=== PATIENT | male | born 1960 | race Caucasian/White ===

== ENCOUNTER 2020-02-23 12:56 | Outpatient (CLI) | payer OTHER, SELFPAY ==
--- NOTE | ~2020-02-23 | CT_ITS ---
EXAMINATION: CT sinus wo con DATE: 02/23/2020 14:05 INDICATION: Chronic sinusitis TECHNIQUE: Computed tomography (CT) of the paranasal sinuses was performed without intravenous contra st. The dose-length product was 304.88 mGy-cm. Automated exposure control and iterative reconstructio n technique were employed. COMPARISON: None FINDINGS: There is extensive mucosal thickening of all paranasal sinuses. Small mastoid effusions. Os tiomeatal units are occluded. Leftward nasal septal deviation. There is mucoperiosteal reaction in th e paranasal sinuses. IMPRESSION: 1. Chronic pansinusitis. Reviewed, dictated and finalized at location B. PREAD CUTTER HAND IMPRESSION: 1. Chronic pansinusitis.
== END 2020-02-23 12:57 | disposition home or self-care (01) ==
LOC: CHSIMG 12:57
PROVIDERS: PCP Internal Medicine; Visit Provider Internal Medicine
DX: J32.9 Chronic sinusitis, unspecified (principal)
CPT/HCPCS: 70486

== ENCOUNTER 2021-02-03 09:30 | Outpatient (CLI) | payer OTHER, SELFPAY ==
--- NOTE | ~2021-02-03 | CT_ITS ---
EXAMINATION: CT sinus wo con DATE: 02/03/2021 09:56 INDICATION: Right sinus facial pressure and bleeding. History of sinus surgery. TECHNIQUE: Computed tomography (CT) of the paranasal sinuses was performed without contrast. Iterativ e reconstruction technique was employed. Exam dose: 296.82 mGy-cm total exam DLP. COMPARISON: 02/23/2020 CT sinuses FINDINGS: There is leftward deviation of the nasal septum. There is prominence of the inferior nasal turbinates. There is severe soft tissue thickening of the mid and upper nasal cavities, engulfing the area of the middle nasal turbinates, which are largely obscured or possibly partially absent post-surgically. The region of the osteomeatal units is completely opacified bilaterally. The frontal sinuses are completely opacified. The ethmoid air cells are nearly completely opacified b ilaterally. The sphenoid sinuses are completely opacified the exception of 2 small locules of air in the left sph enoid sinus. There is severe nearly complete opacification of maxillary sinuses. The mastoid air cells are minimally developed on the right. There is limited development of the left mastoid air cells. IMPRESSION: Severe pansinusitis There is slight interval aeration of the ethmoid air cells and mild interval aeration of the superior portion of the maxillary sinuses since the complete opacification noted in the sinuses on 02/2020 Reviewed, dictated and finalized at Location A. Reviewed, dictated and finalized at location A. N AGENT IMPRESSION: Severe pansinusitis There is slight interval aeration of the ethmoid air cells and mild interval ae ration of the superior portion of the maxillary sinuses since the complete opac ification noted in the sinuses on 02/2020
== END 2021-02-03 09:31 | disposition home or self-care (01) ==
LOC: CHSIMG 09:31
PROVIDERS: PCP Internal Medicine; Visit Provider Otolaryngology
DX: J32.9 Chronic sinusitis, unspecified (principal)
CPT/HCPCS: 70486

== ENCOUNTER 2021-03-09 23:14 | Inpatient (IN) | payer OTHER, SELFPAY ==
--- NOTE | ~2021-03-09 | XR_ITS ---
EXAMINATION: XR chest 1V portable DATE: 03/09/2021 23:39 INDICATION: Shortness of breath. TECHNIQUE: A single frontal view of the chest was obtained. COMPARISON: Chest 2 views 02/26/2019 FINDINGS: A calcified left lung nodules consistent with old granulomatous disease. There is mild atel ectasis at left lung base. No pleural effusion or pneumothorax. The heart size is normal. IMPRESSION: 1. Mild atelectasis at left lung base. Reviewed, dictated and finalized at location A. SSIBILITY LIFT TECHNICIAN
--- NOTE | ~2021-03-09 | CT_ITS ---
EXAMINATION: CT sinus wo con DATE: 03/11/2021 08:02 INDICATION: Chronic sinusitis, worse for the past 2 weeks TECHNIQUE: Computed tomography (CT) of the paranasal sinuses was performed without contrast. Iterativ e reconstruction technique was employed. Exam dose: 273.54 mGy-cm total exam DLP. COMPARISON: 02/03/2021 CT sinuses FINDINGS: The nasal cavities are almost completely opacified, as are the left and right middle meatus and ostiomeatal units. The nasal turbinates are engulfed by the soft tissue swelling. There is leftward bowing of the nasal septum. There is limited development of the mastoid air cells, especially on the right There is complete opacification without any aeration at the frontal, ethmoid, maxillary and sphenoid sinuses. IMPRESSION: Complete opacification of all paranasal sinuses Nearly complete opacification of the nasal cavities, left and right middle meatus Reviewed, dictated and finalized at Location A. Reviewed, dictated and finalized at location B. ERN CHAIN MAKER SUPERVISOR IMPRESSION: Complete opacification of all paranasal sinuses Nearly complete opacification of the nasal cavities, left and right middle meat us
[2021-03-09 23:15] VITALS: BP 89/39; PULSE 182; RESP 16; TEMP 35.5; O2SAT 98
--- NOTE | 2021-03-09 23:20 | ECG_ITS ---
Measurements Intervals [place] Rate: 173 P: TN: 0 QRS: 76 QRSD: 94 T: -18 QT: 222 QTc: 377 Interpretive Statements ATRIAL FIBRILLATION WITH RAPID VENTRICULAR RESPONSE LOW QRS VOLTAGE IN PRECORDIAL LEADS CANNOT RULE OUT SEPTAL INFARCT, AGE INDETERMINATE ST-T WAVE ABNORMALITY IN ANTEROLAT/INF LEADS- CONSIDER ISCHEMIA BASELINE WANDER- II, III, AVF, V2-V6 ABNORMAL ECG Electronically Signed On 03-10-2021 6:25:56 LICENSED MARRIAGE AND FAMILY THERAPIST by Zac Hu D.O.
[2021-03-09] MEDS: SODIUM CHLORIDE 0.9% IV 1,000 ML 999 ML IV CONT (23:36)
[2021-03-09] MEDS: dilTIAZem HCl INJ 25 MG/5 ML VIAL 20 MG IV PUSH (23:37)
[2021-03-09 23:46] VITALS: BP 86/69; PULSE 141
[2021-03-09] MEDS: dilTIAZem 100 MG/100 ML 100 MG/100 ML BAG IV CONT (23:46)
--- NOTE | 2021-03-09 23:48 | ED.ARRPALP ---
HPI - Arrhythmia/Palpitations General Chief Complaint: Arrhythmia/Palpitations Stated Complaint: AFIB Time Seen by Provider: 03/09/21 23:16 Source: patient, family and RN notes reviewed Mode of arrival: ambulatory Limitations: no limitations History of Present Illness complaint: rapid heart beat, palpitations, irregular heart beat and atrial fibrillation Onset (ago): hour(s) (1) Duration: constant Severity: moderate Context: occurred during rest Arrhythmia history: atrial fibrillation and on anti-coagulants Associated symptoms: shortness of breath and diaphoresis Related Data Home Medications Medication Instructions Recorded Confirmed fluticasone propion-salmeterol 1 inh INHALATION DAILY 02/26/19 03/09/21 [Advair Diskus] Adult Aspirin 325 mg PO DAILY 03/09/21 03/09/21 montelukast 10 mg PO DAILY 03/09/21 03/09/21 Allergies Allergy/AdvReac Type Severity Reaction Status Date / Time No Known Allergies Allergy Verified 03/09/21 23:41 Review of Systems Review of Systems: All systems reviewed & are unremarkable except as noted in HPI and below PMFSH Past Medical History Medical History (Updated 03/10/21 @ 05:52 by Neda Navarro MD) Atrial fibrillation COPD (chronic obstructive pulmonary disease) History of cardioversion Surgical History Surgical History History of tonsillectomy Family History Family History Unknown Atrial fibrillation Mother Status post catheter ablation of atrial fibrillation Sibling Status post catheter ablation of atrial fibrillation Sibling Status post catheter ablation of atrial fibrillation Social History Social History Smoking status: Never smoker Second hand tobacco smoke exposure: No Alcohol intake: current Substance use: current Substance use type: does not use Gender identity (if verbalized by the patient): Male Spiritual care concerns: No Agree to blood products: Yes Exam Const: General: no acute distress and alert Nutritional Appearance: well nourished HENMT: Head: normal to inspection Ears: external ears normal and TM's normal bilaterally General nose exam: Normal external nose present and Normal nares present Face and sinus: normal facial exam Mouth: Yes moist mucous membranes Eyes: Pupils: Equal, round and reactive pupils present EOM: EOMs intact bilaterally Neck: Neck: normal visual inspection and no lymphadenopathy Chest: Chest palpation & inspection: normal inspection of the chest Resp: Effort & Inspection: normal respiratory effort Auscultation: clear to auscultation bilaterally Cardio: Rate: tachycardic Rhythm: abnormal rhythm GI: GI Palp: Yes Soft to palpation and No Tenderness to palpation present (GI) Percussion: Yes normal to percussion : General: Yes bladder normal to palpation and Yes no CVA tenderness Male General Exam: Yes normal external exam Testes: Testes normal Back/Spine/Pelvis: Back: no CVA tenderness Skin: General skin exam: normal color Rashes: no rashes Neuro: General: patient oriented x3, moves all extremities, no meningeal signs, no focal motor deficits and CN's II-XI intact bilaterally Extrem: General: normal to inspection and no pedal edema Psych: Appearance: grossly normal and well kempt Mental Status: mental status grossly normal Affect: normal affect Thought content: Yes Normal thought content present Course Course Emergency Course: Pt was pain-free in the ED with uncontrolled HR. Mildly hypotensive with moderate sinus congestion. For admission to control AFib and manx elevated WBC. Reevaluation(s) Reevaluation #1: Pt was comfortable in the ED. Date: 03/10/21 Time: 00:10 Vital Signs Vital signs: Vital Signs Temperature 35.5 C L 03/09/21 23:15 Pulse Rate 182 H 03/09/21 23:15 Respiratory Rate 16
[2021-03-09 23:56] VITALS: BP 85/66; PULSE 143; RESP 12; O2SAT 97
[2021-03-09 23:59] LABS: Hematocrit 47.5 % (40.0-54.0); Hemoglobin 16.1 g/dL (14.0-18.0); Mean Corpuscular HGB Conc 33.9 g/dL (32.0-36.0); Mean Corpuscular Hemoglobin 31.2 pg (27.0-31.0); Mean Corpuscular Volume 92.1 fL (78.0-102.0); Mean Platelet Volume 9.4 fl (8.7-11.0); Platelet Count Result 274 K/mm3 (150-420); Red Blood Count 5.16 M/mm3 (4.70-6.10); Red Cell Distribution Width 12.8 % (11.6-14.4)
--- NOTE | 2021-03-09 23:59 | PC.NURSE ---
2319 ERP called to beside. Orderd 20mg Dilt IV push. RN admin pts bp dropped to 70/58. ERP made aware. 1 L of NS ordered. RN admin 1 L NS prior to starting cardizem per ERP. RN now monitoring pts blood pressure and heart rate.
[2021-03-10] VITALS (24 sets, daily range): BP systolic 81–120; BP diastolic 55–79; PULSE 94–133; RESP 14–20; TEMP 36.3–36.6; O2SAT 94–98; BMI 31.9
[2021-03-10 00:15] LABS: Alanine Aminotransferase 32 U/L (16-63); Albumin Level 2.8 g/dL (3.4-5.0); Alkaline Phosphatase 230 U/L (46-116); Anion Gap 15 mmol/L (8-16); Aspartate Amino Transferase 25 U/L (15-37); Bilirubin,Total 0.4 mg/dL (0.00-1.00); Blood Urea Nitrogen 8 mg/dL (7-18); Calcium 8.2 mg/dL (8.5-10.1); Carbon Dioxide 23 mmol/L (21-32); Chloride 102 mmol/L (98-108); Estimated CRCL calculation 77 ml/min; Estimated Glomerular Filt Rate > 60; Glucose 139 mg/dL (70-99); Osmolality Calculated 290 mOsm/kg (285-295); Potassium 3.5 mmol/L (3.5-5.1); Sodium 140 mmol/L (136-145); Total Protein 6.7 g/dL (6.4-8.2); Troponin I 10.2 ng/L (0.00-60.4)
[2021-03-10 00:17] LABS: Ethanol < 3 mg/dL (0-6); White Blood Count 22.1 K/mm3 (4.8-10.8)
[2021-03-10] MEDS: SODIUM CHLORIDE 0.9% IV 1,000 ML 999 ML (00:44)
[2021-03-10 00:57] LABS: Band Neutrophils Percent 0 % (0-6); Eosinophils Absolute Manual 9.06 K/mm3 (0.02-0.5); Eosinophils Percent Manual 41 % (1-6); Lymphocytes Absolute Manual 2.43 K/mm3 (1.1-4.5); Lymphocytes Percent Manual 11 % (18-44); Monocytes Absolute Manual 0.66 K/mm3 (0.1-0.90); Monocytes Percent Manual 3 % (3-9); Neutrophils Percent Manual 43 % (46-73); Total Cells Counted 100
[2021-03-10 00:58] LABS: Basophils Absolute Manual 0.44 K/mm3 (0-0.1); Basophils Percent Manual 2 % (0-1); Platelet Estimate Adequate (Adequate)
[2021-03-10] MEDS: AZITHROMYCIN 250 MG TABLET 500 MG PO (01:02)
--- NOTE | 2021-03-10 01:02 | PC.NURSE ---
PT c/o nasal congestion. Pt states he has been weaning himself of Afrin. RN informed pt that there is rebound congestion that occurs from using Afrin.RN informed ERP of patients concerns of congestion.
--- NOTE | 2021-03-10 01:10 | PC.NURSE ---
Pt aware of need for urine specimen but states she is unable to go at this time.
[2021-03-10 01:19] LABS: Lactic Acid Reflex 1.7 mmol/L (0.4-2.0)
[2021-03-10] MEDS: guaiFENesin 12 HR 600 MG TABCR PO ×3 (02:03→21:32)
--- NOTE | 2021-03-10 03:37 | PC.NURSE ---
Pt provided water and crackers. Pt states he is feeling better at this time. Pt aware waiting for covid/flu then will hopefully admit. Pt adjusted in bed.
[2021-03-10 04:30] LABS: SARS-CoV-2 RNA PCR Negative (Negative)
[2021-03-10 04:37] LABS: Influenza Control Valid (Valid)
--- NOTE | 2021-03-10 04:39 | PC.NURSE ---
RN called floor and told them of admit. They will call RN back.
[2021-03-10 04:52] LABS: Amphetamine Screen Urine Negative (Negative); Barbiturate Screen Urine Negative (Negative); Benzodiazepines Screen Urine Negative (Negative); Cannabinoid Screen Urine Negative (Negative); Cocaine Screen Urine Negative (Negative); Methadone Screen Urine Negative (Negative); Opiate Screen Urine Negative (Negative); Phencyclidine Screen Urine Negative (Negative)
[2021-03-10 04:53] LABS: Add Urine Microscopic? YES; Appearance Urine Clear (Clear); Bilirubin Urine Negative (Negative); Blood Urine Negative (Negative); Color Urine Yellow (Yellow); Glucose Urine UA Negative (Negative); Ketones Urine 2+ (Negative); Leukocyte Esterase Ur Negative (Negative); Nitrate Urine Negative (Negative); Protein Urine Negative (Negative); Urobilinogen Urine 0.2 mg/dL (0.2-1.0)
[2021-03-10 05:01] LABS: Granular Casts Urine 20-29 /lpf; Mucus Urine Moderate /lpf; Squamous Epithelial Cell Urine Few /hpf (Few)
--- NOTE | 2021-03-10 06:00 | ADMGEN ---
This patient, TIGIST JOAQUIN, was admitted to 2nd Floor Room 226-1. Patient oriented to hospital policies and general routines including ID bracelet, bed and alarms, visiting hours, pain management, procedures, bathroom and other care routines, personal items, smoking policy, room service/diet, and visiting hours. Information on how to activate the Rapid Response Team has been discussed. Patient are encouraged to report perceived risks to care and to ask questions if they do not understand what they are told or what they should do. Patient admitted to 2nd floor with Cardizem drip going @ 5mg/hour to IV site in [facility]. Patient denies pain/complaints/sob @ this time. No distress noted. Call light in reach.
[2021-03-10] MEDS: SODIUM CHLORIDE 0.9% IV 500 ML IV CONT (06:55)
--- NOTE | 2021-03-10 08:00 | ECG_ITS ---
Measurements Intervals [place] Rate: 113 P: FL: 0 QRS: 60 QRSD: 98 T: 20 QT: 309 QTc: 425 Interpretive Statements ATRIAL FIBRILLATION WITH RAPID VENTRICULAR RESPONSE INCOMPLETE RIGHT BUNDLE BRANCH BLOCK BORDERLINE ST-T WAVE ABNORMALITY- ANT/INF LEADS BASELINE ARTIFACT- V2-V4 ABNORMAL ECG Electronically Signed On 03-10-2021 8:00:48 HEMSTITCHER by Zac Hu D.O.
[2021-03-10] MEDS: ASPIRIN 325 MG ENTERIC TABLET PO (08:01)
[2021-03-10] MEDS: MONTELUKAST SODIUM 10 MG TABLET PO (08:01)
[2021-03-10] MEDS: SODIUM CHLORIDE 0.9% IV 1,000 ML 250 ML IV CONT ×3 (08:30→16:31)
--- NOTE | 2021-03-10 08:42 | PC.NURSE ---
Titrated Cardizem from 5mg/hr to 7mg/hr per Dr. Higgins and protocol.
--- NOTE | 2021-03-10 09:35 | PC.NURSE ---
Titrated cardizem from 7mg/hr to 10mg/hr at 0930. BP 108/61 HR at 124 at 0930. Will monitor closely.
[2021-03-10] MEDS: SALMET XINAFT/FLUTIC PROPIN 250 MCG/50 MCG INH CAP 1 PUFF INHALATION (09:44)
[2021-03-10] MEDS: APIXABAN 2.5 MG TABLET 5 MG PO ×2 (12:28→21:31)
--- NOTE | 2021-03-10 12:28 | PM.IMHP ---
H&P: HPI History of Present Illness Date/Time: 03/10/21 12:28 this is a 60-year-old male who presented to our emergency depart with complaints of heart palpitations and dizziness. Patient has a past medical history of A. fib, COPD and history of cardioverted. Patient is [facility] in [place] , medical records requested. According to patient he has been cardioverted several times in the past he also notes that his doctor took him off of his Cardizem 240 mg daily and Eliquis because he has been in sinus rhythm for quite some time now. Patient also notes that he believes that all of this occurred because he has been fighting a sinus infection for the last 2 months. He notes that his ENT doctor put cefdinir and steroids with no relief he also notes that he has stents placed in his nares due to his sinus problem. Patient heart rate was in the 180s when he presented to the ED rate of 113, WBCs 22.1, hemoglobin 16.1 hematocrit 47.5 platelets 274, sodium 140, potassium 3.5, chloride 102, BUN 8, creatinine 1.18, glucose 139, lactic acid 1.7 liver function test within normal limits troponin 10.2 Covid influenza negative toxicology negative, chest x-ray Mild atelectasis at left lung base. The patient denies SOB, CP, palpitation, extremity numbness, lightheadedness, dizziness, constipation, diarrhea, chills, or fever. Chief Complaint: Heart palpitation, dizziness Review of Systems Review of Systems: A 14 organ system Review of Systems was performed and pertinent positives included in the HPI, otherwise remaining ROS is negative. [facility] Past Medical History Medical History (Updated 03/10/21 @ 05:52 by Neda Navarro MD) Atrial fibrillation COPD (chronic obstructive pulmonary disease) History of cardioversion Surgical History Surgical History History of tonsillectomy Family History Family History Unknown Atrial fibrillation Mother Status post catheter ablation of atrial fibrillation Sibling Status post catheter ablation of atrial fibrillation Sibling Status post catheter ablation of atrial fibrillation Social History Social History Smoking status: Never smoker Second hand tobacco smoke exposure: No Alcohol intake: never Substance use: never Substance use type: does not use Gender identity (if verbalized by the patient): Male Spiritual care concerns: No Agree to blood products: Yes Meds Home Medications and Allergies Home Medications Medication Instructions Recorded Confirmed Type fluticasone propion-salmeterol 1 inh INHALATION DAILY 02/26/19 03/09/21 History [Advair Diskus] Adult Aspirin 325 mg PO DAILY 03/09/21 03/09/21 History montelukast 10 mg PO DAILY 03/09/21 03/09/21 History Allergies Allergy/AdvReac Type Severity Reaction Status Date / Time No Known Allergies Allergy Verified 03/09/21 23:41 Vital Signs Vital Signs - 24 hr 03/09/21 23:15 03/09/21 23:46 03/09/21 23:56 Temperature 96 F L Pulse Rate 182 H 141 H 143 H Respiratory Rate 16 12 Blood Pressure 89/39 L 86/69 L 85/66 L Pulse Oximetry 98 97 03/10/21 00:18 03/10/21 00:49 03/10/21 01:50 Temperature Pulse Rate 126 H 133 H 123 H Respiratory Rate 14 20 16 Blood Pressure 81/56 L 86/65 L 98/68 L Pulse Oximetry 96 97 96 03/10/21 02:39 03/10/21 03:53 03/10/21 04:30 Temperature Pulse Rate 130 H 96 114 H Respiratory Rate 18 16 20 Blood Pressure 99/71 L 99/73 L 108/61 Pulse Oximetry 96 98 96 03/10/21 05:34 03/10/21 06:00 03/10/21 07:00 Temperature 97.3 F L 97.6 F Pulse Rate 114 H 94 97 Respiratory Rate 16 20 16 Blood Pressure 114/67 112/70 Pulse Oximetry 94 95 95 03/10/21 08:00 03/10/21 08:55 03/10/21 09:33 Temperature 97.3 F L 97.6 F Pulse Rate 120 H 114 H 119 H Respiratory Rate 18 16 Blood Pressure 101/55 L
[2021-03-10] MEDS: dilTIAZem 100 MG/100 ML 100 MG/100 ML BAG 10 MG IV CONT ×2 (12:46→22:17)
[2021-03-10] MEDS: LORATADINE 10 MG TABLET PO (15:37)
--- NOTE | 2021-03-10 20:00 | PC.NURSE ---
Updated Dr Higgins on patient's heart rate and fluid intake. New order received to discontinue IV fluids.
[2021-03-10] MEDS: AMOXICILLIN/CLAVULANATE K 875-125 MG TAB 1 TABLET PO (21:31)
[2021-03-10] MEDS: traZODone HCL 50 MG TABLET PO (22:19)
[2021-03-11] VITALS (12 sets, daily range): BP systolic 114–127; BP diastolic 62–83; PULSE 99–165; RESP 18–20; TEMP 36.2–37.1; O2SAT 93–96
[2021-03-11 05:34] LABS: Hematocrit 45.1 % (40.0-54.0); Hemoglobin 15.1 g/dL (14.0-18.0); Mean Corpuscular HGB Conc 33.5 g/dL (32.0-36.0); Mean Corpuscular Hemoglobin 31.1 pg (27.0-31.0); Mean Platelet Volume 9.5 fl (8.7-11.0); Platelet Count Result 261 K/mm3 (150-420); Red Blood Count 4.85 M/mm3 (4.70-6.10)
[2021-03-11 05:50] LABS: Alanine Aminotransferase 30 U/L (16-63); Albumin Level 2.5 g/dL (3.4-5.0); Alkaline Phosphatase 213 U/L (46-116); Anion Gap 9 mmol/L (8-16); Aspartate Amino Transferase 21 U/L (15-37); Bilirubin,Total 0.4 mg/dL (0.00-1.00); Blood Urea Nitrogen 4 mg/dL (7-18); CRP 5.1 mg/dL (0.0-0.9); Calcium 7.8 mg/dL (8.5-10.1); Carbon Dioxide 25 mmol/L (21-32); Chloride 105 mmol/L (98-108); Estimated CRCL calculation 97 ml/min; Estimated Glomerular Filt Rate > 60; Glucose 106 mg/dL (70-99); Magnesium 1.8 mg/dL (1.8-2.4); Osmolality Calculated 284 mOsm/kg (285-295); Potassium 3.9 mmol/L (3.5-5.1); Sodium 139 mmol/L (136-145); Total Protein 6.3 g/dL (6.4-8.2)
[2021-03-11 05:52] LABS: White Blood Count 25.1 K/mm3 (4.8-10.8)
[2021-03-11] MEDS: dilTIAZem 100 MG/100 ML 100 MG/100 ML BAG 10 MG IV CONT (06:50)
--- NOTE | 2021-03-11 08:38 | PC.NURSE ---
cardizem drip discontinued at this time
[2021-03-11] MEDS: AMOXICILLIN/CLAVULANATE K 875-125 MG TAB 1 TABLET PO ×2 (08:51→21:04)
[2021-03-11] MEDS: MONTELUKAST SODIUM 10 MG TABLET PO (08:51)
[2021-03-11] MEDS: APIXABAN 2.5 MG TABLET 5 MG PO ×2 (08:52→21:04)
[2021-03-11] MEDS: guaiFENesin 12 HR 600 MG TABCR PO ×2 (08:53→21:04)
[2021-03-11] MEDS: SALMET XINAFT/FLUTIC PROPIN 250 MCG/50 MCG INH CAP 1 PUFF INHALATION (08:55)
[2021-03-11] MEDS: LORATADINE 10 MG TABLET PO (08:58)
[2021-03-11] MEDS: FLUTICASONE PROPIONATE 0.05% NA SPR 16 GM BTL (*BKC) 2 SPRAY NASAL (10:00)
--- NOTE | 2021-03-11 14:09 | PM.IMPN ---
Progress Note: A&P Assessment and Plan (1) Sinusitis: Qualifiers: Chronicity: chronic Sinusitis location: pansinusitis Qualified Code(s): J32.4 - Chronic pansinusitis <TEMO Handy - Last Filed: 03/11/21 14:35> Code(s): J32.9 - Chronic sinusitis, unspecified <TEMO Handy - Last Filed: 03/11/21 14:35> Status: Acute <TEMO Handy - Last Filed: 03/11/21 14:35> Assessment and Plan: 02/03/2021 CT of the sinuses indicates Severe pansinusitis Repeat CT of the sinuses pending Patient on Rocephin and azithromycin WBCs elevated 22.1, will trend 03/11/2021 Radiology IMPRESSION: Complete opacification of all paranasal sinuses, Nearly complete opacification of the nasal cavities, left and right middle meatus. Started Flonase, Solu-Medrol 40 mg once, Pt to follow up with ENT after DC <TEMO Handy - Last Filed: 03/11/21 14:35> (2) Abnormal EKG: Code(s): R94.31 - Abnormal electrocardiogram [ECG] [EKG] <TEMO Handy - Last Filed: 03/11/21 14:35> Status: Acute <TEMO Handy - Last Filed: 03/11/21 14:35> Assessment and Plan: EKG A. fib with RVR with a heart rate of 118 Patient received Cardizem 20 mg IV push 1 time in currently on a Cardizem drip at 5 mL/h restarted Cardizem 240 mg daily Continue telemetry Requested records from [facility] in [place] Awaiting call from cycle repairer [phone] 03/11/2021 Cardizem drip DC'ed, PO Cardizem started, continue to monitor, HR increases as Pt gets up and walks around. When sitting and relaxed HR around 100-120 <TEMO Handy - Last Filed: 03/11/21 14:35> (3) Atrial fibrillation with rapid ventricular response: Code(s): I48.91 - Unspecified atrial fibrillation <TEMO Handy - Last Filed: 03/11/21 14:35> Status: Acute <TEMO Handy - Last Filed: 03/11/21 14:35> Assessment and Plan: EKG A. fib with RVR with a heart rate of 118 Patient received Cardizem 20 mg IV push 1 time in currently on a Cardizem drip at 5 mL/h restarted Cardizem 240 mg daily Continue telemetry Requested records from [facility] in [place] Awaiting call from cycle repairer [phone] Restarted Eliquis 03/11/2021 As noted above <TEMO Handy - Last Filed: 03/11/21 14:35> Subjective Date/time seen: 03/11/21 14:09 Pt states he is having difficulty breathing and explains this is because his nasal passages are very congested. Pt states that he has been using Afrin for the past 1-2 weeks and prior to that a couple months ago he was using Phenylephrine. He has also had sinus ballooning and more extensive nasal surgery by an ENT in the past. Pt states he has not been able to get sleep in the last 4 nights. Pt has tried saline nasal spray with minimal success. Will keep him overnight as his Cardizem drip was DC'ed today and will monitor his HR overnight and revisit in the AM. <TEMO Handy - Last Filed: 03/11/21 14:35> Review of Systems Review of Systems: All systems reviewed & are unremarkable except as noted in HPI and below <TEMO Handy - Last Filed: 03/11/21 14:35> Exam Const: General: cooperative, healthy appearing, well developed, alert, awake, Physically active, tired appearing and uncomfortable <TEMO Handy - Last Filed: 03/11/21 14:35> Nutritional Appearance: overweight <TEMO Handy - Last Filed: 03/11/21 14:35> Limitations: other limitations (unable to breath through nasal congestion, rebound congestion from Afrin) <TEMO Handy - Last Filed: 03/11/21 14:35> HENMT: Head: other (Maxillary sinus tenderness) <TEMO Handy - Last Filed: 03/11/21 14:35> General nose exam: Abnormal mucous membranes and turbinates present erythematous and other (inflamed) <TEMO Handy - Last Filed: 03/11/21 14
[2021-03-11] MEDS: methylPREDNISolone SOD SUCC 40 MG VIAL IV PUSH (15:39)
--- NOTE | 2021-03-11 17:51 | PC.NURSE ---
erp aware of hr 130-170's afib. claims steriods in past makes hr soar. claims his sinuses are draining and coughing up a storm. cardizem gtt restarted per erp request @ 5mg/ml vs [id number]% ra.
[2021-03-11] MEDS: dilTIAZem 100 MG/100 ML 100 MG/100 ML BAG 7.5 MG IV CONT (18:18)
--- NOTE | 2021-03-11 18:18 | PC.NURSE ---
Addendum entered by Sheree Gomes RN 03/11/21 19:10: hr remains 130-150's. cardizem gtt up to 7.5mg/hr. bp127/77. Original Note: hr remains 130-150's. cardizem gtt up to 10mg/hr. bp 127/77
[2021-03-11] MEDS: SODIUM CHLORIDE 0.9% IV 500 ML IV CONT ×2 (19:12→21:09)
--- NOTE | 2021-03-11 19:15 | PC.NURSE ---
Upon assessment of pt, this RN noted pts monitor continues to show AFib c RVR at a HR of 178. Cardizem gtt is infusing @ 7.5 mg/hr on pump. Pts VSS stable at this time and he has no c/o c/p or SOB. Pt is sitting bedside and watching TV, using urinal per self and has call escalera at side. NS IV bolus of 500 ml started per order.
--- NOTE | 2021-03-11 21:00 | PC.NURSE ---
Pt continues to have rapid rate of 150-180, pt denies any c/o, charge nurse asked to call ERP for more orders due to consistent rate above 160. Order obtained for another NS 500 ml bolus and Cardizem 20 mg IVP. Explained to pt. about order and pt verbalized understanding. After Cardizem IVP administered, pt resting more comfortably and HR noted approx 130, VSS, denies any c/o.
[2021-03-11] MEDS: dilTIAZem HCl INJ 25 MG/5 ML VIAL 20 MG IV PUSH (21:02)
[2021-03-11] MEDS: FLUTICASONE PROPIONATE 0.05% NA SPR 16 GM BTL (*BKC) 1 SPRAY NASAL (21:05)
[2021-03-12] VITALS (8 sets, daily range): BP systolic 98–119; BP diastolic 56–76; PULSE 94–126; RESP 16–20; TEMP 36.3–36.6; O2SAT 94–98
--- NOTE | 2021-03-12 02:05 | PC.NURSE ---
Pt sleeping, no distress noted, Monitor shows Afib c rate of 103 and Cardizem gtt continues to infuse at 7.5 mg/hr.
[2021-03-12] MEDS: dilTIAZem 100 MG/100 ML 100 MG/100 ML BAG IV CONT (04:08)
[2021-03-12 05:52] LABS: Hematocrit 46.2 % (40.0-54.0); Hemoglobin 15.2 g/dL (14.0-18.0); Mean Corpuscular HGB Conc 32.9 g/dL (32.0-36.0); Mean Corpuscular Volume 91.1 fL (78.0-102.0); Mean Platelet Volume 9.6 fl (8.7-11.0); Platelet Count Result 275 K/mm3 (150-420); Red Blood Count 5.07 M/mm3 (4.70-6.10); Red Cell Distribution Width 12.7 % (11.6-14.4); White Blood Count 14.7 K/mm3 (4.8-10.8)
[2021-03-12 05:58] LABS: Anion Gap 13 mmol/L (8-16); Blood Urea Nitrogen 8 mg/dL (7-18); Carbon Dioxide 21 mmol/L (21-32); Chloride 104 mmol/L (98-108); Estimated CRCL calculation 113 ml/min; Estimated Glomerular Filt Rate > 60; Glucose 164 mg/dL (70-99); Osmolality Calculated 288 mOsm/kg (285-295); Potassium 4.1 mmol/L (3.5-5.1); Sodium 138 mmol/L (136-145)
[2021-03-12] MEDS: FLUTICASONE PROPIONATE 0.05% NA SPR 16 GM BTL (*BKC) 1 SPRAY NASAL (08:32)
[2021-03-12] MEDS: dilTIAZem HCL CD 180 MG CAP.ER.24H PO (08:33)
[2021-03-12] MEDS: APIXABAN 2.5 MG TABLET 5 MG PO (08:34)
[2021-03-12] MEDS: MONTELUKAST SODIUM 10 MG TABLET PO (08:34)
[2021-03-12] MEDS: LORATADINE 10 MG TABLET PO (08:35)
[2021-03-12] MEDS: AMOXICILLIN/CLAVULANATE K 875-125 MG TAB 1 TABLET PO (08:35)
[2021-03-12] MEDS: guaiFENesin 12 HR 600 MG TABCR PO (08:35)
[2021-03-12] MEDS: SALMET XINAFT/FLUTIC PROPIN 250 MCG/50 MCG INH CAP 1 PUFF INHALATION (08:51)
[2021-03-12] MEDS: methylPREDNISolone SOD SUCC 40 MG VIAL 20 MG IV PUSH (08:56)
[2021-03-12 11:54] LABS: Thyroid Stimulating Hormone 0.28 uIU/mL (0.36-3.74); Troponin I 27.3 ng/L (0.00-60.4)
--- NOTE | 2021-03-12 16:54 | PM.DS ---
DS: Admitting Diagnosis Discharge Date 03/12/2021 <TEMO Handy - Last Filed: 03/12/21 17:03> Admitting Diagnosis New onset A fib, Sinusitis <TEMO Handy - Last Filed: 03/12/21 17:03> DS: Discharge Diagnosis Discharge Diagnosis (1) Sinusitis: Qualifiers: Chronicity: chronic Sinusitis location: pansinusitis Qualified Code(s): J32.4 - Chronic pansinusitis <TEMO Handy - Last Filed: 03/12/21 17:03> Code(s): J32.9 - Chronic sinusitis, unspecified <TEMO Handy - Last Filed: 03/12/21 17:03> Status: Acute <TEMO Handy - Last Filed: 03/12/21 17:03> Assessment and Plan: 02/03/2021 CT of the sinuses indicates Severe pansinusitis Repeat CT of the sinuses pending Patient on Rocephin and azithromycin WBCs elevated 22.1, will trend 03/11/2021 Radiology IMPRESSION: Complete opacification of all paranasal sinuses, Nearly complete opacification of the nasal cavities, left and right middle meatus. Started Flonase, Solu-Medrol 40 mg once, Pt to follow up with ENT after DC 03/12/2021 continue Augmentin on DC along with Saline nasal spray and Flonase, STOP Afrin and Phenylephrine nasal spray permanently <TEMO Handy - Last Filed: 03/12/21 17:03> (2) Abnormal EKG: Code(s): R94.31 - Abnormal electrocardiogram [ECG] [EKG] <TEMO Handy - Last Filed: 03/12/21 17:03> Status: Acute <TEMO Handy - Last Filed: 03/12/21 17:03> Assessment and Plan: EKG A. fib with RVR with a heart rate of 118 Patient received Cardizem 20 mg IV push 1 time in currently on a Cardizem drip at 5 mL/h restarted Cardizem 240 mg daily Continue telemetry Requested records from [facility] in [place] Awaiting call from boat pilot [phone] 03/11/2021 Cardizem drip DC'ed, PO Cardizem started, continue to monitor, HR increases as Pt gets up and walks around. When sitting and relaxed HR around 100-120 03/12/2021 Rate is better controlled, occasionally into the 130s mostly 100-110, will continue Cardizem 300 mg on DC with close f/u with PCP and Site Controller. <TEMO Handy - Last Filed: 03/12/21 17:03> (3) Atrial fibrillation with rapid ventricular response: Code(s): I48.91 - Unspecified atrial fibrillation <TEMO Handy - Last Filed: 03/12/21 17:03> Status: Acute <TEMO Handy - Last Filed: 03/12/21 17:03> Assessment and Plan: EKG A. fib with RVR with a heart rate of 118 Patient received Cardizem 20 mg IV push 1 time in currently on a Cardizem drip at 5 mL/h restarted Cardizem 240 mg daily Continue telemetry Requested records from [facility] Awaiting call from boat pilot [phone] Restarted Eliquis 03/11/2021 As noted above 03/12/2021 ... <TEMO Handy - Last Filed: 03/12/21 17:03> DS: Summary Hospital Course Reason for hospitalization: 60-year-old male with a history of Parres smoking, COPD, atrial fibrillation status post cardioversion 2 years ago presented with atrial fibrillation and sinusitis. The patient was noted to be hemodynamically stable without any evidence of CHF. The patient's atrial fibrillation rate is controlled with Cardizem. Patient is anticoagulated with Eliquis. Advised to follow-up with boat pilot. <Arvind Candelaria MD - Last Filed: 03/12/21 18:12> Hospital Course: Rate controlled improved for A fib, Sinusitis improved continue Augmentin, Flonase, Saline spray <TEMO Handy - Last Filed: 03/12/21 17:03> Time Spent with Patient Time attestation: Total time spent providing and/or coordinating discharge services: < 30 minutes <Lloyd Suarez, NICOLAS-Srikanth - Last Filed: 03/12/21 17:03> Exam Const: General: cooperative, healthy appearing, comfortable, no acute distress, well developed, alert, awake and Physically a
--- NOTE | 2021-03-12 18:08 | PC.NURSE ---
Patient aware of being discharged. Telemetry removed and IV to right forearm D/C'd. IV site without redness, swelling, drainage. No active bleeding observed after removal, dressing applied and instructions given to monitor site. Patient dressed. No c/o SOB, chest pain/pressure, pain. Patient able to amb to wheelchair. Patient taken to front entrance via wheelchair where his son picked him up.
--- NOTE | 2021-03-13 10:34 | PC.NURSE ---
Pt states he received and understood his discharge instructions. Pt also states everyone was wonderful .
== END 2021-03-12 17:40 | disposition home or self-care (01) | DRG 310 ==
LOC: CHSED 23:21 → CHS2ND 03-10 05:01
PROVIDERS: Nurse Practitioner; Nurse Practitioner Family; Admitting Provider Emergency Medicine; Emergency Provider Emergency Medicine; PCP Internal Medicine; Visit Provider Emergency Medicine
DX: I48.20 Chronic atrial fibrillation, unspecified (principal); J44.9 Chronic obstructive pulmonary disease, unspecified; J32.4 Chronic pansinusitis
CPT/HCPCS: 36415; 70486; 71045; 80048; 80053; 80307; 81001; 83605; 83735; 84443; 84484; 85025; 85027; 86140; 87040; 87081; 87804; 87880; 93005; 93306; 96361; 96365; 96366; 96368; 96374; 99285; A9270; C9803; J0696; J2920; J7030; J7040; U0003; U0005

== ENCOUNTER 2021-04-01 12:27 | Outpatient (CLI) | payer OTHER, SELFPAY ==
--- NOTE | ~2021-04-01 | XR_ITS ---
EXAMINATION: XR sacroiliac joints min 3V, XR lumbar spine 2-3V EXAM DATE: 04/01/2021 13:28 (accession [id number]), 04/01/2021 13:30 (accession [id number]) INDICATION: Acute Low Back Pain x3wks, NKI . TECHNIQUE: Frontal, bilateral oblique projections of the sacroiliac joints. Lumber spine frontal, l ateral, lateral L5-S1 projections for interpretation. There is no prior study for comparison. FINDINGS: Mild symmetric sacroiliac primary osteoarthritis. There is moderate L4-5 and mild to modera te L5-S1 disc disease. Moderate to severe lower lumbar facet arthropathy. The vertebral bodies are al igned in the AP dimension. There are no acute fractures identified. Paraspinal soft tissue is unremar kable. IMPRESSION: 1. Moderate to severe lower lumbar facet arthropathy, moderate L4-5 disc disease. 2. Mild sacroiliac osteoarthritis. Reviewed, dictated and finalized at location A. T TEAM MEMBER IMPRESSION: 1. Moderate to severe lower lumbar facet arthropathy, moderate L4-5 disc disea se. 2. Mild sacroiliac osteoarthritis.
[2021-04-01 12:59] LABS: Hematocrit 43.9 % (40.0-54.0); Hemoglobin 14.6 g/dL (14.0-18.0); Mean Corpuscular HGB Conc 33.3 g/dL (32.0-36.0); Mean Corpuscular Hemoglobin 30.9 pg (27.0-31.0); Mean Platelet Volume 9.2 fl (8.7-11.0); Platelet Count Result 205 K/mm3 (150-420); Red Blood Count 4.72 M/mm3 (4.70-6.10); Red Cell Distribution Width 13.6 % (11.6-14.4)
[2021-04-01 13:27] LABS: White Blood Count 25.3 K/mm3 (4.8-10.8)
[2021-04-01 13:43] LABS: Band Neutrophils Percent 1 % (0-6); Neutrophils Absolute Manual 7.59 K/mm3 (1.3-6.7); Neutrophils Percent Manual 29 % (46-73); Total Cells Counted 100
[2021-04-01 13:44] LABS: Eosinophils Absolute Manual 14.92 K/mm3 (0.02-0.5); Eosinophils Percent Manual 59 % (1-6); Lymphocytes Absolute Manual 1.51 K/mm3 (1.1-4.5); Lymphocytes Percent Manual 6 % (18-44); Monocytes Absolute Manual 1.26 K/mm3 (0.1-0.90); Monocytes Percent Manual 5 % (3-9); Platelet Estimate Adequate (Adequate)
[2021-04-01 13:53] LABS: Alanine Aminotransferase 83 U/L (16-63); Albumin Level 2.6 g/dL (3.4-5.0); Alkaline Phosphatase 276 U/L (46-116); Anion Gap 9 mmol/L (8-16); Aspartate Amino Transferase 97 U/L (15-37); Bilirubin,Total 0.6 mg/dL (0.00-1.00); Blood Urea Nitrogen 9 mg/dL (7-18); Calcium 8.4 mg/dL (8.5-10.1); Carbon Dioxide 29 mmol/L (21-32); Chloride 100 mmol/L (98-108); Estimated Glomerular Filt Rate > 60; Glucose 105 mg/dL (70-99); Osmolality Calculated 284 mOsm/kg (285-295); Potassium 4.7 mmol/L (3.5-5.1); Sodium 138 mmol/L (136-145); Total Protein 7.1 g/dL (6.4-8.2)
[2021-04-01 13:56] LABS: CRP 13.1 mg/dL (0.0-0.9)
[2021-04-01 14:05] LABS: Erythrocyte Sedimentation Rate 24 mm/hr (0-20)
[2021-04-01 15:50] LABS: INR 1.2; Prothrombin Time 12.4 Seconds (9.50-12.10)
[2021-04-02 11:22] LABS: Hemoglobin A1C 5.6 % (<5.7)
[2021-04-02 11:29] LABS: Cholesterol 151 mg/dL (0-200); HDL Direct 30 mg/dL (40-60); LDL Cholesterol Calculated 103 mg/dL (<130); Triglycerides 88 mg/dL (0-150)
[2021-04-04 06:12] LABS: Immunoglobulin E 1561 kU/L (<=114)
[2021-04-05 05:05] LABS: Hepatitis B Surface Antibody Nonreactive (Nonreactive); Hepatitis C Signal to Cutoff 0.01 ratio (<1.00); Hepatitis C Virus Antibody Nonreactive (Nonreactive)
== END 2021-04-01 12:28 | disposition home or self-care (01) ==
PROVIDERS: PCP Internal Medicine; Visit Provider Internal Medicine
DX: M54.50 Low back pain, unspecified (principal); D72.829 Elevated white blood cell count, unspecified; K74.60 Unspecified cirrhosis of liver
CPT/HCPCS: 36415; 72100; 72202; 80053; 80061; 82785; 83036; 85025; 85610; 85652; 86140; 86706; 88184; 88185; 88189

== ENCOUNTER 2021-04-05 19:50 | Emergency (ER) | payer OTHER, SELFPAY ==
--- NOTE | ~2021-04-05 | XR_ITS ---
EXAMINATION: XR chest 2V EXAM DATE: 04/05/2021 20:38 INDICATION: Bilat Hand And Feet Numbness/Afib/Hx Of Copd . TECHNIQUE: Frontal and lateral projections of the chest obtained and reviewed. Comparison is made to prior examination from 02/26/2019. FINDINGS: Some chronic left basilar airspace disease probably scarring, appears unchanged compared t o 2019 x-ray. There is left basilar granuloma. No evidence of superimposed acute airspace disease. No pneumothorax or pleural effusion. Cardiomediastinal silhouette is normal. There are no osseous abnor malities identified. IMPRESSION: Chronic left lower lobe scarring or atelectasis. Reviewed, dictated and finalized at location G. ITION TECH
--- NOTE | 2021-04-05 20:10 | ECG_ITS ---
Measurements Intervals [place] Rate: 154 P: AR: 0 QRS: 133 QRSD: 103 T: -10 QT: 304 QTc: 488 Interpretive Statements ATRIAL FIBRILLATION WITH RAPID VENTRICULAR RESPONSE VENTRICULAR COUPLET AND SHORT RUN OF VENTRICULAR TACHYCARDIA RIGHT AXIS DEVIATION CANNOT RULE OUT SEPTAL INFARCT, AGE INDETERMINATE INCOMPLETE RIGHT BUNDLE BRANCH BLOCK LOW VOLTAGE- PRECORDIAL LEADS BASELINE ARTIFACT- I, II ABNORMAL ECG Electronically Signed On 04-06-2021 7:25:00 TEST DESK SUPERVISOR by Zac Hu D.O.
[2021-04-05 20:20] VITALS: PULSE 141; RESP 16; TEMP 35.6; O2SAT 96
--- NOTE | 2021-04-05 20:23 | ED.GENADULT ---
HPI - General Adult General Chief complaint: Unspecified Stated complaint: NUMBNESS MUTIPLE SITES/ANKLE PAIN Time Seen by Provider: 04/05/21 19:53 Source: patient Mode of arrival: wheelchair Limitations: no limitations History of Present Illness HPI narrative: 60-year-old man with a history of atrial fibrillation and COPD brought to the emergency department by his for progressively worse numbness in his hands or feet for the last week, rt ankle pain, rash on his right lower leg, and weakness in the last day or 2. Patient was recently treated at [facility] for atrial fibrillation (cardioversion). His doctor has been working him up for eosinophilia, low back pain, and elevated liver enzymes. CTA at [facility] was negative per Dr. Diane, but showed some abnormalities in his liver. Denies fever, shortness of breath, vomiting, diarrhea, dysuria, chest pain. He denies sick exposures. Related Data Home Medications Medication Instructions Recorded Confirmed fluticasone propion-salmeterol 1 inh INHALATION DAILY 02/26/19 04/05/21 [Advair Diskus] montelukast 10 mg PO DAILY 03/09/21 04/05/21 diltiazem HCl [Cartia XT] 240 mg PO DAILY 04/05/21 04/05/21 Allergies Allergy/AdvReac Type Severity Reaction Status Date / Time No Known Allergies Allergy Verified 03/09/21 23:41 Review of Systems Review of Systems: All systems reviewed & are unremarkable except as noted in HPI and below Constitutional: Constitutional: Denies chills, Reports fatigue and Denies fever(s) ENT: Denies otalgia, Reports nasal congestion, Reports post nasal drip, Reports sinus pressure and Denies sore throat Cardiovascular: Cardiovascular: Denies chest pain at rest, Denies chest pain with activity, Reports rapid heart rate and Reports leg edema Respiratory: Respiratory: Denies cough, Denies hemoptysis, Denies dyspnea and Denies wheezing Gastrointestinal: Gastrointestinal: Denies abdominal pain, Denies melena, Denies hematochezia, Denies diarrhea, Denies nausea and Denies vomiting Musculoskeletal: Musculoskeletal: Reports arthralgias (Right ankle) and Denies joint swelling Integumentary/Breasts: Skin/Breast: Reports lesions (Right ankle), Denies erythema and Denies rash Neurologic: Denies Abnormal speech present, Denies confusion, Denies vertigo, Denies dizziness, Denies syncope, Reports numbness, Denies paresthesias and Reports weakness Hematologic/Lymphatic: Hematologic/Lymphatic: Reports easy bruising Allergic/Immunologic: Allergic/Immunologic: Denies urticaria, Denies lip swelling and Denies throat swelling [facility] Past Medical History Medical History (Updated 04/06/21 @ 01:43 by Dom Higgins MD) Atrial fibrillation COPD (chronic obstructive pulmonary disease) History of cardioversion Surgical History Surgical History History of tonsillectomy Family History Family History Unknown Atrial fibrillation Mother Status post catheter ablation of atrial fibrillation Sibling Status post catheter ablation of atrial fibrillation Sibling Status post catheter ablation of atrial fibrillation Social History Social History Smoking status: Never smoker Second hand tobacco smoke exposure: No Alcohol intake: never Substance use: never Substance use type: does not use Gender identity (if verbalized by the patient): Male Spiritual care concerns: No Agree to blood products: Yes Exam Const: General: cooperative, comfortable, no acute distress, alert, awake and Physically active Nutritional Appearance: average body habitus Orientation/consciousness: patient oriented x3 HENMT: Head: normal to inspection Mouth: Yes oropharynx normal and Yes moist mucous membranes Throat: posterior oropharynx normal Eyes: Pupils: Equal, round and reactive pupils present EOM: EOMs
[2021-04-05 20:32] VITALS: PULSE 154
--- NOTE | 2021-04-05 20:32 | PC.NURSE ---
Pt to X-Ray Via W/C at this time.
--- NOTE | 2021-04-05 21:07 | PC.NURSE ---
Pt , Dr Diane here at this time to see Pt and consult with SHAD Bradshaw.
[2021-04-05 21:11] VITALS: PULSE 154; RESP 16; O2SAT 96
[2021-04-05 21:13] LABS: Hematocrit 41.8 % (40.0-54.0); Hemoglobin 13.7 g/dL (14.0-18.0); Mean Corpuscular HGB Conc 32.8 g/dL (32.0-36.0); Mean Corpuscular Hemoglobin 30.9 pg (27.0-31.0); Mean Corpuscular Volume 94.4 fL (78.0-102.0); Platelet Count Result 220 K/mm3 (150-420); Red Blood Count 4.43 M/mm3 (4.70-6.10); Red Cell Distribution Width 13.9 % (11.6-14.4)
[2021-04-05] MEDS: SODIUM CHLORIDE 0.9% IV 500 ML 999 ML IV CONT (21:18)
[2021-04-05 21:29] LABS: Lactic Acid Reflex 2.1 mmol/L (0.4-2.0)
[2021-04-05 21:32] LABS: Alanine Aminotransferase 140 U/L (16-63); Albumin Level 2.2 g/dL (3.4-5.0); Alkaline Phosphatase 243 U/L (46-116); Anion Gap 11 mmol/L (8-16); Aspartate Amino Transferase 167 U/L (15-37); Bilirubin,Total 0.4 mg/dL (0.00-1.00); Blood Urea Nitrogen 11 mg/dL (7-18); Calcium 8.4 mg/dL (8.5-10.1); Carbon Dioxide 24 mmol/L (21-32); Chloride 98 mmol/L (98-108); Estimated CRCL calculation 95 ml/min; Estimated Glomerular Filt Rate > 60; Glucose 110 mg/dL (70-99); NT Pro B Type Natriuretic Pept 3059 pg/mL (0-125); Osmolality Calculated 276 mOsm/kg (285-295); Potassium 4.2 mmol/L (3.5-5.1); Sodium 133 mmol/L (136-145); Total Protein 6.8 g/dL (6.4-8.2)
[2021-04-05 21:36] LABS: Immature Reticulocyte Fraction 22.6 % (2.0-16.52); Reticulocyte Hemoglobin Conten 34.7 pg (28.0-35.0); Reticulocyte Percent 2.71 % (0.50-1.50); Reticulocytes Absolute 0.12 M/mm3 (0.02-0.1)
[2021-04-05 21:38] LABS: Lactate Dehydrogenase 410 U/L (85-227); Thyroid Stimulating Hormone Reflex 1.27 u/IU/mL (0.36-3.74)
[2021-04-05 21:39] LABS: CRP 5.7 mg/dL (0.0-0.9)
[2021-04-05 21:42] LABS: White Blood Count 32.1 K/mm3 (4.8-10.8)
--- NOTE | 2021-04-05 21:44 | PC.NURSE ---
Critical Labs called over at this time Trip 386.8 and Wht Count 32.1. Ronaldo KULKARNI addvised.
--- NOTE | 2021-04-05 21:52 | PC.NURSE ---
Call placed to [facility] for pts patch worker for transfer. Transfer to ICU needed, will await call wilbur from [facility] for consult.
[2021-04-05 21:57] LABS: SARS-CoV-2 Ag Negative (Negative)
[2021-04-05 22:31] LABS: Erythrocyte Sedimentation Rate 72 mm/hr (0-20)
--- NOTE | 2021-04-05 22:32 | PC.NURSE ---
[facility] called back a Dr. Augustin/cna instructor consulted also ICU/Daniel and cna instructor. Currently looking for bed for pt after speaking with Dr Higgins.
[2021-04-05 22:51] VITALS: PULSE 148
[2021-04-05] MEDS: DIGOXIN INJ 250 MCG/ML 2 ML AMP (*BKC) 500 MCG IV PUSH (22:51)
[2021-04-05] MEDS: ASPIRIN 81 MG CHEWABLE TABLET 324 MG PO (22:57)
[2021-04-05] MEDS: ASPIRIN 81 MG CHEWABLE TABLET 243 MG (23:06)
--- NOTE | 2021-04-05 23:08 | PC.NURSE ---
Dr Greenberg accepted pt. Awaiting room assignment.
[2021-04-05 23:21] LABS: Band Neutrophils Percent 0 % (0-6); Basophils Absolute Manual 0.32 K/mm3 (0-0.1); Basophils Percent Manual 1 % (0-1); Eosinophils Absolute Manual 22.47 K/mm3 (0.02-0.5); Eosinophils Percent Manual 70 % (1-6); Lymphocytes Percent Manual 5 % (18-44); Monocytes Percent Manual 5 % (3-9); Neutrophils Absolute Manual 6.09 K/mm3 (1.3-6.7); Neutrophils Percent Manual 19 % (46-73); Platelet Estimate Adequate (Adequate); Total Cells Counted 100
[2021-04-06 00:05] LABS: Reflex Lactic Acid Yes or No Add Lactic
[2021-04-06 00:23] LABS: Troponin I 3772.8 ng/L (0.00-60.4)
--- NOTE | 2021-04-06 00:23 | PC.NURSE ---
Lab called over critical Troponin: 3772.8. SHAD Higgins advised.
--- NOTE | 2021-04-06 00:50 | PC.NURSE ---
Pt report caled to Gely GUILLERMO. [facility] called for Pt trans.
[2021-04-06 00:55] VITALS: BP 89/64; PULSE 140; RESP 24; TEMP 35.6; O2SAT 96
[2021-04-06 01:21] LABS: Add Urine Microscopic? YES; Appearance Urine Clear (Clear); Bilirubin Urine Negative (Negative); Blood Urine Negative (Negative); Color Urine Yellow (Yellow); Glucose Urine UA Negative (Negative); Ketones Urine 1+ (Negative); Leukocyte Esterase Ur Negative LEU/UL (Negative); Nitrate Urine Negative (Negative); Protein Urine Trace (Negative); Specific Grav Ur >= 1.030 (1.010-1.020); Urobilinogen Urine 0.2 mg/dL (0.2-1.0); pH Urine 5.5 (5.0-8.0)
[2021-04-06 01:26] LABS: Mucus Urine Moderate /lpf
== END 2021-04-06 01:22 | disposition short-term general hospital (02) ==
PROVIDERS: Emergency Provider Emergency Medicine; PCP Internal Medicine
DX: I48.20 Chronic atrial fibrillation, unspecified (principal); R79.89 Other specified abnormal findings of blood chemistry; G62.9 Polyneuropathy, unspecified; D72.10 Eosinophilia, unspecified; I77.6 Arteritis, unspecified; Z20.822 Contact with and (suspected) exposure to COVID-19
CPT/HCPCS: 36415; 71046; 80053; 81001; 83605; 83615; 83880; 84443; 84484; 85025; 85046; 85652; 86140; 86880; 87040; 87426; 93005; 96361; 96374; 99285; A9270; C9803; J1160; J7040

== ENCOUNTER 2021-11-18 12:41 | Outpatient (CLI) | payer OTHER, SELFPAY ==
[2021-11-18 13:03] LABS: Basophils Percent Auto 1.1 % (0.0-1.0); Eosinophils Absolute Auto 0.44 K/mm3 (0.02-0.50); Eosinophils Percent Auto 4.9 % (1.0-6.0); Hematocrit 46.7 % (40.0-54.0); Hemoglobin 15.6 g/dL (14.0-18.0); Immature Granulocyte Absolute 0.02 K/mm3 (0.00-0.00); Immature Granulocyte Percent A 0.2 % (0.0-0.0); Lymphocytes Absolute Auto 1.37 K/mm3 (1.10-4.50); Lymphocytes Percent Auto 15.4 % (18.0-42.0); Mean Corpuscular HGB Conc 33.4 g/dL (32.0-36.0); Mean Corpuscular Hemoglobin 31.5 pg (27.0-31.0); Mean Corpuscular Volume 94.2 fL (78.0-102.0); Monocytes Absolute Auto 0.48 K/mm3 (0.10-0.90); Monocytes Percent Auto 5.4 % (2.0-11.0); Neutrophils Absolute Auto 6.5 K/mm3 (1.7-7.2); Platelet Count Result 285 K/mm3 (150-420); Red Blood Count 4.96 M/mm3 (4.70-6.10); Red Cell Distribution Width 13.2 % (11.6-14.4); White Blood Count 8.9 K/mm3 (4.8-10.8)
[2021-11-18 13:24] LABS: Alanine Aminotransferase 19 U/L (16-63); Albumin Level 3.7 g/dL (3.4-5.0); Alkaline Phosphatase 75 U/L (46-116); Anion Gap 10 mmol/L (8-16); Aspartate Amino Transferase 12 U/L (15-37); Bilirubin,Total 0.4 mg/dL (0.00-1.00); Blood Urea Nitrogen 21 mg/dL (7-18); CRP < 0.2 mg/dL (0.0-0.9); Calcium 8.8 mg/dL (8.5-10.1); Carbon Dioxide 23 mmol/L (21-32); Chloride 104 mmol/L (98-108); Estimated Glomerular Filt Rate 55; Glucose 110 mg/dL (70-99); Osmolality Calculated 288 mOsm/kg (285-295); Potassium 3.9 mmol/L (3.5-5.1); Sodium 137 mmol/L (136-145); Total Protein 7.3 g/dL (6.4-8.2)
[2021-11-18 13:35] LABS: Rheumatoid Factor Screen Negative (Negative)
[2021-11-18 14:09] LABS: Erythrocyte Sedimentation Rate 3 mm/hr (0-20)
[2021-11-22 14:32] LABS: ANCA Screen Negative (Negative)
== END 2021-11-18 12:42 | disposition home or self-care (01) ==
LOC: CHSLAB 12:46
PROVIDERS: PCP Internal Medicine
DX: I77.6 Arteritis, unspecified (principal)
CPT/HCPCS: 36415; 80053; 85025; 85652; 86036; 86140; 86430

== ENCOUNTER 2021-11-28 13:29 | Outpatient (CLI) | payer OTHER, SELFPAY ==
[2021-11-28 13:44] LABS: Add Urine Microscopic? NO; Appearance Urine Clear (Clear); Bilirubin Urine Negative (Negative); Blood Urine Negative (Negative); Color Urine Light Yellow (Yellow); Glucose Urine UA Negative (Negative); Ketones Urine Negative (Negative); Leukocyte Esterase Ur Negative (Negative); Nitrate Urine Negative (Negative); Protein Urine Negative (Negative); Specific Grav Ur 1.015 (1.010-1.020); Urobilinogen Urine 0.2 mg/dL (0.2-1.0)
[2021-11-28 13:55] LABS: Creatinine Urine 82.07 mg/dL (40-278); Total Protein Urine Random 7.9 mg/dL (0.0-11.9)
== END 2021-11-28 13:30 | disposition home or self-care (01) ==
LOC: CHSLAB 13:34
PROVIDERS: PCP Internal Medicine
DX: I77.6 Arteritis, unspecified (principal); R79.89 Other specified abnormal findings of blood chemistry
CPT/HCPCS: 81003; 82570; 84156

== ENCOUNTER 2022-02-17 10:08 | Outpatient (CLI) | payer OTHER, SELFPAY ==
--- NOTE | 2022-02-17 11:30 | NEURO_ITS ---
Impression: # Complains of numbness of hands. History of EGPN(Churg-Cipriano Syndrome). # Bilateral Carpal Tunnel Syndrome, left more than right, sensory more than motor. # No ulnar neuropathy. # Needle/EMG exam mildly neurogenic. Motor Nerve Conduction Upper Extremities Median Nerve Conduction Velocity (m/sec) Terminal Latency (msec) Response Voltage(mV) Elbow-Wrist Wrist Elbow Wrist Right 50 4.0 1 1 Left 51 5.1 2 1 Ulnar Nerve Conduction Velocity (m/sec) Terminal Latency (msec) Response Voltage(mV) Above Elbow Below Elbow Wrist Above Elbow Below Elbow Wrist Right 54 2.9 3 4 Left 52 3.1 5 6 F-Wave Latency Median (ms) Ulnar (ms) Right 30.6 31.6 Left 30.6 30.5 Sensory Nerve Conduction Upper Extremities Median Nerve Stimulation Terminal Latency (msec) Wrist/Digit Response Voltage (uV) Wrist Right 3.6/3.6 9/4 Left 6.8/NR 29/NR Ulnar Nerve Stimulation Terminal Latency (msec) Wrist/Digit Response Voltage (uV) Wrist Right 2.7 14 Left 3.3 35 Radial Nerve Terminal Latency (msec) Response Voltage(mV) Right 2.8 8 Left 2.7 18 Left Right Muscles Examined Fibrillation Fasciculation Scarcity Voltage Duration Left Right Left Right Left Right Left Right Left Right Deltoid Biceps X X Brachioradialis Triceps X X Pronator Teres X X Ext Indicis X X Ext Digitorum X X Abd Poll Brev ++ Incr >12ms X X 1st Dorsal Interosseus Paraspinals MTDD
== END 2022-02-17 10:09 | disposition home or self-care (01) ==
LOC: ANHNEURO 10:11
PROVIDERS: PCP Internal Medicine; Visit Provider Internal Medicine
DX: G56.03 Carpal tunnel syndrome, bilateral upper limbs (principal)
CPT/HCPCS: 95886; 95911

== ENCOUNTER 2022-05-15 09:55 | Outpatient (RCR) | payer OTHER, SELFPAY ==
--- NOTE | 2022-05-15 15:32 | OTOPEVAL1 ---
Assessment and note entered by Moriah Fry, OT Evaluation Information Assessment Status Evaluation Diagnosis Numbness in hands Onset 02/2021 Subjective Information The patient reports no pain during any activities and stated that his doctor injected his wrists to decrease inflammation. The patient reports he likes to play the guitar and has been practicing lately where he thinks that his ROM has improved after playing guitar. The patient also reports a cold sensation to L hand digits 1-3 after prolonged use of L hand. Reported Pain Level Pain Score 0: Self Report Assessment OT Clinical Summary The patient is a 61 year old male who was referred to outpatient OT due to decreased sensation of B UE, limited pinch strength and ROM affecting the patient's ability to perform daily tasks. The patient's PMH includes but is not limited to EGPA, asthma and a-fib. The patient previously demonstrated no difficulties with digit ROM, pinch strength or sensation deficits and was independent with all ADLs and leisure tasks. The patient now demonstrates maximally impaired sensation of L hand (digits 1-3), decreased pinch strength and limited AROM of digits 2-3 of L hand which affect his ability to perform daily tasks and play the guitar. The patient scored a 15.9% on QuickDASH questionnaire at the time of evaluation reporting moderate difficulty with opening a jar, cutting with a knife, and had a moderately difficult time performing leisure tasks. The patient requires skilled OT at this time to address current deficits. Plan of Care Interventions Therapeutic Exercise,Manual Therapy,Neuro Re- education,Therapeutic Activities,Hot Pack/Cold Pack,Electrical Stimulation,Sensory Integrative Techn,Self-Care/Home Management,Ultrasound OT Services Indicated Yes Treatment Frequency and 2x/week for 4 weeks. Duration These treatments will address the objective and functional deficits as defined above. The patient will be advanced safely and appropriately in order for the patient to progress towards his/her prior level of function. Additional exercises will be introduced and as well as a comprehensive home exercise program upon discharge, if needed, ?to ensure carryover of functional gains achieved in the clinic. This treatment plan has been reviewed and agreement upon by the patient.
== END 2022-05-29 20:00 | disposition home or self-care (01) ==
LOC: CHSOT 09:55
PROVIDERS: Visit Provider Orthopaedic Surgery Hand Surgery
DX: G56.03 Carpal tunnel syndrome, bilateral upper limbs (principal)
CPT/HCPCS: 97110; 97140; 97165; 97530

== ENCOUNTER 2022-07-16 08:32 | Outpatient (CLI) | payer OTHER, SELFPAY ==
[2022-07-16 08:49] LABS: Appearance Urine Clear (Clear); Bilirubin Urine Negative (Negative); Blood Urine Negative (Negative); Color Urine Yellow (Yellow); Glucose Urine UA Negative (Negative); Hematocrit 47.1 % (40.0-54.0); Hemoglobin 15.6 g/dL (14.0-18.0); Ketones Urine Negative (Negative); Leukocyte Esterase Ur Negative LEU/UL (Negative); Mean Corpuscular HGB Conc 33.1 g/dL (32.0-36.0); Mean Corpuscular Hemoglobin 31.8 pg (27.0-31.0); Mean Corpuscular Volume 96.1 fL (78.0-102.0); Mean Platelet Volume 9.1 fl (8.7-11.0); Nitrate Urine Negative (Negative); Platelet Count Result 321 K/mm3 (150-420); Protein Urine Negative (Negative); Red Cell Distribution Width 12.7 % (11.6-14.4); Specific Grav Ur 1.025 (1.010-1.020); Urobilinogen Urine 0.2 mg/dL (0.2-1.0); White Blood Count 7.8 K/mm3 (4.8-10.8)
[2022-07-16 08:51] LABS: Add Urine Microscopic? NO
[2022-07-16 08:59] LABS: Hemoglobin A1C 5.4 % (<5.7)
[2022-07-16 09:00] LABS: Band Neutrophils Percent 0 % (0-6); Basophils Absolute Manual 0.23 K/mm3 (0-0.1); Basophils Percent Manual 3 % (0-1); Eosinophils Absolute Manual 0.85 K/mm3 (0.02-0.5); Eosinophils Percent Manual 11 % (1-6); Lymphocytes Absolute Manual 2.26 K/mm3 (1.1-4.5); Lymphocytes Percent Manual 29 % (18-44); Monocytes Absolute Manual 0.62 K/mm3 (0.1-0.90); Monocytes Percent Manual 8 % (3-9); Neutrophils Absolute Manual 3.82 K/mm3 (1.3-6.7); Neutrophils Percent Manual 49 % (46-73); Platelet Estimate Adequate (Adequate); Total Cells Counted 100
[2022-07-16 09:32] LABS: Alanine Aminotransferase 19 U/L (16-63); Albumin Level 3.6 g/dL (3.4-5.0); Alkaline Phosphatase 94 U/L (46-116); Anion Gap 6 mmol/L (8-16); Aspartate Amino Transferase 14 U/L (15-37); Bilirubin,Total 0.5 mg/dL (0.00-1.00); Blood Urea Nitrogen 19 mg/dL (7-18); Calcium 8.9 mg/dL (8.5-10.1); Carbon Dioxide 29 mmol/L (21-32); Chloride 105 mmol/L (98-108); Cholesterol 194 mg/dL (0-200); Estimated Glomerular Filt Rate > 60; Glucose 104 mg/dL (70-99); HDL Direct 45 mg/dL (40-60); LDL Cholesterol Calculated 133 mg/dL (<130); Osmolality Calculated 292 mOsm/kg (285-295); Potassium 4.5 mmol/L (3.5-5.1); Prostate Specific Antigen 0.8 ng/mL (< OR = 4.0); Sodium 140 mmol/L (136-145); Triglycerides 81 mg/dL (0-150)
== END 2022-07-16 08:33 | disposition home or self-care (01) ==
LOC: CHSLAB 08:34
PROVIDERS: PCP Internal Medicine; Visit Provider Internal Medicine
DX: Z00.00 Encounter for general adult medical examination without abnormal findings (principal); Z12.5 Encounter for screening for malignant neoplasm of prostate; R73.01 Impaired fasting glucose
CPT/HCPCS: 36415; 80053; 80061; 81003; 83036; 84153; 85025; G0103

== ENCOUNTER 2022-07-21 12:43 | Outpatient (CLI) | payer OTHER, SELFPAY ==
--- NOTE | 2022-07-21 13:36 | ECG_ITS ---
Rate 71 IA 194 QRSd 91 QT 366 QTc 400 --[place]-- P 64 QRS 68 T 70 SINUS RHYTHM INCOMPLETE RIGHT BUNDLE BRANCH BLOCK ST-T WAVE ABNORMALITY IN ANTERIOR LEADS- CONSIDER ISCHEMIA ABNORMAL ECG COMPARED TO ECG 04/05/2021 20:20:37 SINUS RHYTHM NOW PRESENT Electronically Signed On 07-21-2022 13:23:30 CDT by Zac GASPAR
== END 2022-07-21 12:44 | disposition home or self-care (01) ==
LOC: CHSCARD 12:49
PROVIDERS: PCP Internal Medicine; Visit Provider Orthopaedic Surgery Hand Surgery
DX: Z01.818 Encounter for other preprocedural examination (principal); R94.31 Abnormal electrocardiogram [ECG] [EKG]; I45.19 Other right bundle-branch block
CPT/HCPCS: 93005

== ENCOUNTER 2022-08-10 13:56 | Outpatient (CLI) | payer OTHER, SELFPAY ==
[2022-08-10 14:20] LABS: Hematocrit 47.5 % (40.0-54.0); Hemoglobin 15.9 g/dL (14.0-18.0); Mean Corpuscular HGB Conc 33.5 g/dL (32.0-36.0); Mean Corpuscular Hemoglobin 31.5 pg (27.0-31.0); Mean Corpuscular Volume 94.1 fL (78.0-102.0); Mean Platelet Volume 9.3 fl (8.7-11.0); Platelet Count Result 298 K/mm3 (150-420); Red Blood Count 5.05 M/mm3 (4.70-6.10); Red Cell Distribution Width 12.3 % (11.6-14.4); White Blood Count 7.5 K/mm3 (4.8-10.8)
[2022-08-10 14:52] LABS: Band Neutrophils Percent 0 % (0-6); Basophils Absolute Manual 0.15 K/mm3 (0-0.1); Basophils Percent Manual 2 % (0-1); Eosinophils Percent Manual 8 % (1-6); Lymphocytes Absolute Manual 1.87 K/mm3 (1.1-4.5); Lymphocytes Percent Manual 25 % (18-44); Monocytes Percent Manual 8 % (3-9); Neutrophils Absolute Manual 4.27 K/mm3 (1.3-6.7); Neutrophils Percent Manual 57 % (46-73); Platelet Estimate Adequate (Adequate); Total Cells Counted 100
[2022-08-10 14:54] LABS: CRP < 0.5 mg/dL (0.0-0.9)
[2022-08-10 15:19] LABS: Erythrocyte Sedimentation Rate 7 mm/hr (0-20)
[2022-08-16 21:57] LABS: ANCA Screen Negative (Negative)
== END 2022-08-10 13:57 | disposition home or self-care (01) ==
PROVIDERS: PCP Internal Medicine; Visit Provider Internal Medicine
DX: I77.82 Antineutrophilic cytoplasmic antibody [ANCA] vasculitis (principal)
CPT/HCPCS: 36415; 85025; 85652; 86036; 86140

== ENCOUNTER 2022-08-12 08:34 | Outpatient (RCR) | payer OTHER, SELFPAY ==
--- NOTE | 2022-08-12 10:38 | PTOPEVAL1 ---
Assessment and note entered by [facility] Evaluation Information Assessment Status Evaluation Diagnosis right l.e. weakness Onset 08/10/24 Subjective Information Pt. reports that he developed an autoimmune disease that has left him with some weakness. He notices difficulty walking due to weakness in the right foot and mild weakness on the left. He states that he has difficulty with pushing off his toes. He reports that he will be undergoing nerve conduction study in the near future. He states that he has not fallen due to weakness, but does stumble occasionally. He reports that he continues to drive despite his weakness. He reports that his goal for therpay is to improve his strength. Reported Pain Level Pain Score 0: Self Report Assessment PT Clinical Summary Pt. is a 61 year old male who enters the clinic due to right l.e. weakness. He presents with l.e. weakness, abdominal weakness, impaired gait. Continued skilled PT is indicated in order to improve these areas to allow the pt. to be able to safely complete standing activities with improved safety and efficiency. Plan of Care Interventions Electrical Stimulation,Gait Training,Manual Therapy,Neuro Re-education,Patient/Caregiver Educati,Therapeutic Activities,Therapeutic Exercise,Self-Care/Home Management PT Services Indicated Yes Treatment Frequency and 2x/week x 12 visits Duration These treatments will address the objective and functional deficits as defined above. The patient will be advanced safely and appropriately in order for the patient to progress towards his/her prior level of function. Additional exercises will be introduced and as well as a comprehensive home exercise program upon discharge, if needed, ?to ensure carryover of functional gains achieved in the clinic. This treatment plan has been reviewed and agreement upon by the patient.
--- NOTE | 2022-08-12 10:39 | OPREHPOC ---
Outpatient Therapy Plan of Care This is a Multidisciplinary Plan of Care that may contain components documented by all disciplines (PT, OT, and ST.) PT Problem 1 PT Problem #1 Knowledge Deficit PT Goal 1 Goal Pt. will demonstrate independence with a HEP addressing strength and mobility. Target Visit 3 PT Problem 2 PT Problem #2 Impaired Strength PT Goal 1 Goal Pt. will complete 5 standing heel raises on the right demonstrating improved strength Target Visit 12 PT Goal 2 Goal Pt. will be able to ambulate with equal right and left stance time and noted appropriate toe off on the right Target Visit 12 PT Problem 3 PT Problem #3 Impaired Balance PT Goal 1 Goal Pt. will increase his tinetti score to 28/28 indicating improved safety and balance.
== END 2022-09-08 20:00 | disposition home or self-care (01) ==
LOC: CHSPT 08:34
PROVIDERS: PCP Internal Medicine; Visit Provider Internal Medicine
DX: M62.81 Muscle weakness (generalized) (principal)
CPT/HCPCS: 97110; 97112; 97161

== ENCOUNTER 2022-09-29 12:58 | Outpatient (CLI) | payer OTHER, SELFPAY ==
--- NOTE | 2022-09-29 13:30 | NEURO_ITS ---
Impression: # Complains of numbness and weekness of lower extremities, right more than left. 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 # Needle/EMG exam reveals neurogenic changes in right EDB and Tibialis anterior muscles. # Clinical correlation recommended. Nerve Conduction Studies Anti Sensory Summary Table Stim Site NR Peak (ms) P-T Amp (?V) Site1 Site2 Delta-P (ms) Dist (cm) [place] (m/s) Left Sup Fibular Anti Sensory (Ant Lat Mall) 14 cm 4.1 3.6 14 cm Ant Lat Mall 4.1 16.0 39 Right Sup Fibular Anti Sensory (Ant Lat Mall) NO RESPONSE 14 cm NR 14 cm Ant Lat Mall 16.0 Left Sural Anti Sensory (Lat Mall) Calf 4.7 6.9 Calf Lat Mall 4.7 16.0 34 Right Sural Anti Sensory (Lat Mall) NO RESPONSE Calf NR Calf Lat Mall 16.0 Motor Summary Table Stim Site NR Onset (ms) O-P Amp (mV) Site1 Site2 Delta-0 (ms) Dist (cm) [place] (m/s) Left Peroneal Motor (Vastus Med) Ankle 4.4 0.9 Popit Ankle 9.7 43.0 44 Popit 14.1 0.7 Right Peroneal Motor (Vastus Med) MINIMAL RESPONSE Ankle NR Popit Ankle 0.0 Popit NR Left Tibial Motor (Abd Tavera Brev) Ankle 5.3 2.5 Knee Ankle 9.9 43.0 43 Knee 15.2 2.1 Right Tibial Motor (Abd Tavera Brev) NO RESPONSE Ankle NR Knee NR F Wave Studies NR F-Lat (ms) L-R F-Lat (ms) Left Peroneal (Mrkrs) (EDB) 56.84 Right Peroneal (Mrkrs) (EDB) NO RESPONSE NR Left Tibial (Mrkrs) (Abd Hallucis) 59.17 Right Tibial (Mrkrs) (Abd Hallucis) NO RESPONSE NR EMG Side Muscle Nerve Root Ins Act Fibs Amp Dur Recrt Comment Right AntTibialis Dp Br Fibular L4-5 Nml Nml Decr >12ms Reduced Right Ext Dig Brev Dp Br Fibular L5, S1 Nml Nml Nml >12ms Reduced Right Fibularis Long Sup Br Fibular L5-S1 Nml Nml Nml Nml Nml Right Flex Dig Long Tibial L5-S2 Nml Nml Nml Nml Nml Right Gastroc Tibial S1-2 Nml Nml Decr Nml Nml Left AntTibialis Dp Br Fibular L4-5 Nml Nml Nml Nml Nml Left Gastroc Tibial S1-2 Nml Nml Nml Nml Nml Left Fibularis Long Sup Br Fibular L5-S1 Nml Nml Nml Nml Nml Left Flex Dig Long Tibial L5-S2 Nml Nml Nml Nml Nml Left Ext Dig Brev Dp Br Fibular L5, S1 Nml Nml Nml Nml Nml Right QuadratusFem QuadFemoris L4-5, S1 Nml Nml Nml Nml Nml Left QuadratusFem QuadFemoris L4-5, S1 Nml Nml Nml Nml Nml MTDD
== END 2022-09-29 12:59 | disposition home or self-care (01) ==
LOC: ANHNEURO 12:59
PROVIDERS: PCP Internal Medicine; Visit Provider Internal Medicine
DX: I73.9 Peripheral vascular disease, unspecified (principal); R94.131 Abnormal electromyogram [EMG]
CPT/HCPCS: 95886; 95910

== ENCOUNTER 2022-10-23 10:14 | Outpatient (CLI) | payer OTHER, SELFPAY ==
--- NOTE | 2022-10-23 10:23 | ECG_ITS ---
Measurements Intervals [place] Rate: 143 P: NC: 0 QRS: 81 QRSD: 94 T: 64 QT: 287 QTc: 443 Interpretive Statements ATRIAL FIBRILLATION WITH RAPID VENTRICULAR RESPONSE INCOMPLETE RIGHT BUNDLE BRANCH BLOCK [90+ ms QRS DURATION, TERMINAL R IN V1/V2, 40+ ms S IN I/aVL/V4/V5/V6] NONSPECIFIC T-WAVE ABNORMALITY ABNORMAL ECG COMPARED TO ECG 07/21/2022 13:01:03 ATRIAL FIBRILLATION REPLACES SINUS RHYTHM Electronically Signed On 10-23-2022 12:38:34 CDT by Gulshan Claudio M.D.
== END 2022-10-23 10:15 | disposition home or self-care (01) ==
LOC: CHSCARD 10:19
PROVIDERS: PCP Internal Medicine
DX: I48.91 Unspecified atrial fibrillation (principal); R94.31 Abnormal electrocardiogram [ECG] [EKG]
CPT/HCPCS: 93005

== ENCOUNTER 2022-10-26 11:46 | Outpatient (CLI) | payer OTHER, SELFPAY ==
--- NOTE | ~2022-10-26 | CT_ITS ---
EXAMINATION: CT brain wo/w con DATE: 10/26/2022 13:01 INDICATION: Headache TECHNIQUE: Computed tomography (CT) of the head was performed without and with 100 mL Omnipaque-350 i ntravenous contrast. Sagittal and coronal reconstructions were performed. The mA was adjusted accordi ng to patient size. Iterative reconstruction technique was employed. The dose-length product was 1362 .00 mGy-cm. COMPARISON: Sinus CT dated 03/11/2021 FINDINGS: No acute intracranial hemorrhage, acute infarction or abnormal extra axial fluid collection. Ventricl es are normal and symmetric. No mass/mass effect. No abnormally enhancing brain lesions. Cerebral vas culature appears unremarkable with no evident aneurysm or hemodynamically significant stenosis. Persi stent complete opacification of all of the paranasal sinuses. There are thickened sclerotic segura of the bilateral maxillary Sphenoid sinuses consistent with chronic sinusitis. The orbits are normal. Right otomastoiditis effus ion with hyperpneumatized right mastoid. Tiny left mastoid effusion. IMPRESSION: 1. No acute intracranial process or abnormally enhancing brain lesions. 2. Chronic sinusitis with persistent complete opacification of the paranasal sinuses. 3. Right otomastoiditis effusion and tiny left mastoid effusion. Reviewed, dictated and finalized at location B. IMPRESSION: 1. No acute intracranial process or abnormally enhancing brain lesions. 2. Chronic sinusitis with persistent complete opacification of the paranasal si nuses. 3. Right otomastoiditis effusion and tiny left mastoid effusion.
[2022-10-26 12:33] LABS: Estimated Glomerular Filt Rate > 60
== END 2022-10-26 11:47 | disposition home or self-care (01) ==
PROVIDERS: PCP Internal Medicine; Visit Provider Internal Medicine
DX: R51.9 Headache, unspecified (principal); H70.891 Other mastoiditis and related conditions, right ear; J32.8 Other chronic sinusitis
CPT/HCPCS: 70470; Q9967

== ENCOUNTER 2023-02-25 11:09 | Outpatient (CLI) | payer OTHER, SELFPAY ==
[2023-02-25 11:43] LABS: Appearance Urine Clear (Clear); Bilirubin Urine Negative (Negative); Blood Urine Negative (Negative); Color Urine Light Yellow (Yellow); Glucose Urine UA Negative (Negative); Ketones Urine Negative (Negative); Leukocyte Esterase Ur Negative (Negative); Nitrate Urine Negative (Negative); Protein Urine Negative (Negative); Specific Grav Ur <= 1.005 (1.010-1.020); Urobilinogen Urine 0.2 mg/dL (0.2-1.0)
[2023-02-25 11:45] LABS: Hematocrit 48.8 % (40.0-54.0); Hemoglobin 16.2 g/dL (14.0-18.0); Mean Corpuscular HGB Conc 33.2 g/dL (32.0-36.0); Mean Corpuscular Hemoglobin 31.2 pg (27.0-31.0); Mean Platelet Volume 9.1 fl (8.7-11.0); Platelet Count Result 293 K/mm3 (150-420); Red Blood Count 5.19 M/mm3 (4.70-6.10); Red Cell Distribution Width 13.2 % (11.6-14.4); White Blood Count 7.7 K/mm3 (4.8-10.8)
[2023-02-25 11:49] LABS: Add Urine Microscopic? NO
[2023-02-25 12:24] LABS: Band Neutrophils Percent 0 % (0-6); Basophils Absolute Manual 0.07 K/mm3 (0-0.1); Basophils Percent Manual 1 % (0-1); Eosinophils Absolute Manual 0.46 K/mm3 (0.02-0.5); Eosinophils Percent Manual 6 % (1-6); Lymphocytes Absolute Manual 1.38 K/mm3 (1.1-4.5); Lymphocytes Percent Manual 18 % (18-44); Monocytes Absolute Manual 0.69 K/mm3 (0.1-0.90); Monocytes Percent Manual 9 % (3-9); Neutrophils Absolute Manual 5.08 K/mm3 (1.3-6.7); Neutrophils Percent Manual 66 % (46-73); Platelet Estimate Adequate (Adequate); Total Cells Counted 100
[2023-02-25 12:37] LABS: Hemoglobin A1C 5.2 % (<5.7)
[2023-02-25 12:39] LABS: Alanine Aminotransferase 30 U/L (16-63); Albumin Level 3.9 g/dL (3.4-5.0); Alkaline Phosphatase 98 U/L (46-116); Anion Gap 3 mmol/L (8-16); Aspartate Amino Transferase 15 U/L (15-37); Bilirubin,Total 0.5 mg/dL (0.00-1.00); Blood Urea Nitrogen 18 mg/dL (7-18); Calcium 8.7 mg/dL (8.5-10.1); Carbon Dioxide 29 mmol/L (21-32); Chloride 102 mmol/L (98-108); Cholesterol 180 mg/dL (0-200); Estimated Glomerular Filt Rate 59; Free T3 2.29 pg/mL (2.18-3.98); Free T4 Free Thyroxine 1.02 ng/dL (0.76-1.46); Glucose 86 mg/dL (70-99); HDL Direct 51 mg/dL (40-60); LDL Cholesterol Calculated 118 mg/dL (<130); NT Pro B Type Natriuretic Pept 86 pg/mL (0-125); Osmolality Calculated 278 mOsm/kg (285-295); Potassium 4.3 mmol/L (3.5-5.1); Sodium 134 mmol/L (136-145); Thyroid Stimulating Hormone 2.46 uIU/mL (0.36-3.74); Total Protein 7.2 g/dL (6.4-8.2); Triglycerides 54 mg/dL (0-150)
[2023-02-25 12:42] LABS: CRP < 0.5 mg/dL (0.0-0.9)
[2023-02-25 12:47] LABS: Erythrocyte Sedimentation Rate 6 mm/hr (0-20)
[2023-02-25 13:35] LABS: Prostate Specific Antigen 0.5 ng/mL (< OR = 4.0)
[2023-03-04 10:45] LABS: ANCA Screen Negative (Negative)
== END 2023-02-25 11:10 | disposition home or self-care (01) ==
LOC: CHSLAB 11:12
PROVIDERS: PCP Internal Medicine; Visit Provider Internal Medicine
DX: I77.82 Antineutrophilic cytoplasmic antibody [ANCA] vasculitis (principal); G61.9 Inflammatory polyneuropathy, unspecified; E78.2 Mixed hyperlipidemia; I48.0 Paroxysmal atrial fibrillation; Z12.5 Encounter for screening for malignant neoplasm of prostate
CPT/HCPCS: 36415; 80053; 80061; 81003; 83036; 83735; 83880; 84153; 84439; 84443; 84481; 85025; 85652; 86036; 86140; G0103

== ENCOUNTER 2023-03-10 05:55 | Day surgery (SDC) | payer OTHER, SELFPAY ==
[2023-03-02 14:46] VITALS: BMI 31.7
[2023-03-10 06:56] VITALS: BMI 31.3
--- NOTE | 2023-03-10 07:04 | P.PNAN_ITS ---
Anes - Initial Pre Proc Eval Procedure: Operation Date: 03/10/23 08:00 Proposed Procedures p Screening Colonoscopy - Lloyd King DO Date/Time: 03/10/23 07:04 Surgeon: Lloyd King DO Pre Op Diagnosis: Neoplasm Screening Patient Data Age: 62 Gender: M Height: 1.88 m Weight: 110.6 kg Allergies Allergy/AdvReac Type Severity Reaction Status Date / Time No Known Allergies Allergy Verified 03/10/23 06:46 Home Medications Medication Instructions Recorded Confirmed Type montelukast 10 mg tablet 10 mg PO DAILY 03/09/21 03/10/23 History apixaban 2.5 mg tablet (Eliquis) 5 mg PO Q12HR #60 tabs 03/12/21 03/10/23 Rx fluticasone furoate 200 1 inh inhalation DIRECTED 03/03/23 03/03/23 History mcg-vilanterol 25 mcg/dose inhalation powder (Breo Ellipta) fluticasone propionate 50 1 spray intranasal DAILY 03/03/23 03/03/23 History mcg/actuation nasal spray,suspension levalbuterol tartrate 45 1 inh inhalation DIRECTED 03/03/23 03/10/23 History mcg/actuation aerosol inhaler metoprolol succinate 50 mg 50 mg PO DIRECTED 03/03/23 03/03/23 History tablet,extended release 24 hr Patient hx anesthesia problems: none Family hx anesthesia problems: none Results Review: All pre-operative results and documents have been reviewed as part of the pre- operative evaluation. [facility] Past Medical History Medical History (System 09/24/21 @ 15:33 by Josué Mcgill) Atrial fibrillation COPD (chronic obstructive pulmonary disease) History of cardioversion Surgical History Surgical History (System 09/24/21 @ 15:33 by Josué Mcgill) History of tonsillectomy Family History Family History (System 09/24/21 @ 15:33 by Josué Mcgill) Unknown Atrial fibrillation Mother Status post catheter ablation of atrial fibrillation Sibling Status post catheter ablation of atrial fibrillation Sibling Status post catheter ablation of atrial fibrillation Social History Social History (System 09/24/21 @ 15:33 by Josué Mcgill) Smoking status: Never smoker Second hand tobacco smoke exposure: No Alcohol intake: current Drinks per week: 1 Substance use: never Substance use type: does not use Living arrangements: with family Gender identity (if verbalized by the patient): Male Spiritual care concerns: No Agree to blood products: Yes Anes - Eval Final PreProcedure Day of Procedure 03/10/23 07:04 Patient weight: obese Heart: regular rate and rhythm Lungs: clear to auscultation Airway: Mallampati scale class II Neurological: alert and oriented Last oral intake: >/= 8 hours ASA classification: III Emergent: no Anesthetic plan: proceed Anesthesia type and monitoring: general GIVS and standard monitoring Results Review: All pre-operative results and documents have been reviewed as part of the pre- operative evaluation. Informed Consent: The patient's anesthetic plan and its attendant risks and benefits were discussed with the patient/family/POA. Questions were solicited and answers provided to the satisfaction of the patient/family/POA.
[2023-03-10 07:13] VITALS: BP 141/95; PULSE 74; RESP 16; TEMP 36.7; O2SAT 96
[2023-03-10] MEDS: LACTATED RINGERS 1,000 ML 150 ML IV CONT (07:19)
--- NOTE | 2023-03-10 07:25 | PM.IMHP ---
H&P: HPI History of Present Illness Date/Time: 03/10/23 07:25 Chief Complaint: screening for colorectal cancer Narrative: 62 yo man presents for colonoscopy. It has been 10 years since last colonoscopy. He denies any hematochezia or melena. He has no family hx of colon cancer. Review of Systems Review of Systems: All systems reviewed & are unremarkable except as noted in HPI and below Constitutional: Constitutional: Denies chills, Denies fever(s), Denies headache(s) and Denies weight loss Eyes: Eyes: Denies change in vision ENT: Denies dizziness, Denies headache(s), Denies neck mass and Denies throat swelling Cardiovascular: Cardiovascular: Denies chest pain, Denies lightheadedness and Denies dyspnea Respiratory: Respiratory: Denies cough, Denies dyspnea and Denies wheezing Gastrointestinal: Gastrointestinal: Denies abdominal pain, Denies change in bowel habits, Denies nausea and Denies vomiting Genitourinary: Genitourinary: Denies hematuria and Denies dysuria Musculoskeletal: Musculoskeletal: Reports as per HPI Integumentary/Breasts: Skin/Breast: Reports as per HPI Neurologic: Denies dizziness and Denies headache(s) Allergic/Immunologic: Allergic/Immunologic: Denies throat swelling and Denies wheezing PMF Past Medical History Medical History (Updated 03/10/23 @ 07:27 by Lloyd King DO) Atrial fibrillation COPD (chronic obstructive pulmonary disease) History of cardioversion Surgical History Surgical History (System 09/24/21 @ 15:33 by Josué Mcgill) History of tonsillectomy Family History Family History (System 09/24/21 @ 15:33 by Josué Mcgill) Unknown Atrial fibrillation Mother Status post catheter ablation of atrial fibrillation Sibling Status post catheter ablation of atrial fibrillation Sibling Status post catheter ablation of atrial fibrillation Social History Social History (System 09/24/21 @ 15:33 by Josué Mcgill) Smoking status: Never smoker Second hand tobacco smoke exposure: No Alcohol intake: current Drinks per week: 1 Substance use: never Substance use type: does not use Living arrangements: with family Gender identity (if verbalized by the patient): Male Spiritual care concerns: No Agree to blood products: Yes Meds Home Medications and Allergies Home Medications Medication Instructions Recorded Confirmed Type montelukast 10 mg tablet 10 mg PO DAILY 03/09/21 03/10/23 History apixaban 2.5 mg tablet (Eliquis) 5 mg PO Q12HR #60 tabs 03/12/21 03/10/23 Rx fluticasone furoate 200 1 inh inhalation DIRECTED 03/03/23 03/03/23 History mcg-vilanterol 25 mcg/dose inhalation powder (Breo Ellipta) fluticasone propionate 50 1 spray intranasal DAILY 03/03/23 03/03/23 History mcg/actuation nasal spray,suspension levalbuterol tartrate 45 1 inh inhalation DIRECTED 03/03/23 03/10/23 History mcg/actuation aerosol inhaler metoprolol succinate 50 mg 50 mg PO DIRECTED 03/03/23 03/03/23 History tablet,extended release 24 hr Allergies Allergy/AdvReac Type Severity Reaction Status Date / Time No Known Allergies Allergy Verified 03/10/23 06:46 Vital Signs Vital Signs - 24 hr 03/10/23 07:13 Temperature 36.7 C Pulse Rate 74 Respiratory Rate 16 Blood Pressure 141/95 H Pulse Oximetry 96 Oxygen Delivery Room Air Exam Const: General: no acute distress and alert Orientation/consciousness: patient oriented x3 HENMT: Head: normocephalic and atraumatic Ears: hearing grossly normal bilaterally Face/Nose/Sinus: Normal nares present Mouth: Yes Normal oral and palatal mucosa present Eyes: Periorbital: periorbital findings normal Sclera: sclerae normal EOM: EOMs intact bilaterally Neck: Neck: normal visual inspection, no lymphadenopathy and trachea midline Chest: Chest palpation & inspection: normal inspection of the chest Resp: Effort & Inspection: normal respiratory effort Auscultation: clear to auscul
[2023-03-10 07:53] VITALS: BP 104/77; PULSE 72; RESP 16; O2SAT 97
[2023-03-10 08:03] VITALS: BP 116/85; PULSE 64; RESP 16; O2SAT 98
[2023-03-10 08:13] VITALS: BP 116/89; PULSE 67; RESP 16; O2SAT 98
--- NOTE | 2023-03-10 11:33 | WPDANESPN ---
Anes - Prog Note Post-Op Date/Time: 03/10/23 11:33 Cardiovascular status: normal Respiratory status: normal Airway patency: baseline Mental status: baseline Post-Op hydration status: normal Vital Signs: Last Vital Signs Temp 36.7 C 03/10/23 07:13 Pulse 67 03/10/23 08:13 Resp 16 03/10/23 08:13 BP 116/89 03/10/23 08:13 Pulse Ox 98 03/10/23 08:13 O2 Del Method Room Air 03/10/23 08:13 Pain Score (VAS): 0 I/O: Intake & Output 03/09/23 03/10/23 03/10/23 23:59 07:59 15:59 Intake Total 0 150 Balance 0 150 Post-procedural complaints: none Patient Feedback: Patient satisfied with anesthetic care. Other Findings: Patient vital signs back to baseline. Patient denies nausea and vomiting. Patient's pain under control. Patient OK for discharge.
== END 2023-03-10 08:30 | disposition home or self-care (01) ==
PROVIDERS: PCP Internal Medicine; Visit Provider Surgery
PROC: 0DJD8ZZ Inspection of Lower Intestinal Tract, Via Natural or Artificial Opening Endoscopic (ICD-10-PCS; CPT 45378; principal; 2023-03-10 08:00)
DX: Z12.11 Encounter for screening for malignant neoplasm of colon (principal)
CPT/HCPCS: 45378

== ENCOUNTER 2023-12-01 12:08 | Outpatient (CLI) | payer OTHER, SELFPAY ==
--- NOTE | 2023-12-01 12:16 | ECG_ITS ---
Test Date: 2023-12-01 12:24:40 Measurements Intervals [place] Rate: 112 P: 0 OK: 0 QRS: 73 QRSD: 106 T: 30 QT: 328 QTc: 449 Interpretive Statements ATRIAL FIBRILLATION WITH RAPID VENTRICULAR RESPONSE INCOMPLETE RIGHT BUNDLE BRANCH BLOCK ST-T WAVE ABNORMALITY IN ANTERIOR LEADS- CONSIDER ISCHEMIA BASELINE ARTIFACT- II, III, AVR, AVL, AVF, V2 ABNORMAL ECG No previous ECG available for comparison Electronically Signed On 12-01-2023 12:57:16 CDT by Zac Hu D.O.
== END 2023-12-01 12:09 | disposition home or self-care (01) ==
LOC: CHSCARD 12:12
PROVIDERS: PCP Internal Medicine
DX: I48.0 Paroxysmal atrial fibrillation (principal); I45.19 Other right bundle-branch block; R94.31 Abnormal electrocardiogram [ECG] [EKG]
CPT/HCPCS: 93005

== ENCOUNTER 2023-12-31 09:54 | Outpatient (CLI) | payer OTHER, SELFPAY ==
--- NOTE | ~2023-12-31 | CT_ITS ---
EXAMINATION: CT sinus wo con DATE: 12/31/2023 10:15 INDICATION: Polyp of nasal cavity. TECHNIQUE: Computed tomography (CT) of the paranasal sinuses was performed without intravenous contra st. Iterative reconstruction technique was employed. The dose-length product was 296.82 mGy-cm. COMPARISON: Sinuses CT 03/11/2021 FINDINGS: There is complete opacification of the frontal, maxillary, and sphenoid sinuses and near co mplete opacification of the ethmoid sinuses with calcifications in the sinus material and with thicke becky and sclerosis of the sinus segura. There is mucosal thickening in the nasal cavity. There is left monge deviation of the nasal septum. There is total occlusion of the ostiomeatal units. IMPRESSION: 1. Chronic pansinusitis disease, which may be sinonasal polyposis or allergic fungal sinusitis. Reviewed, dictated and finalized at location A. IMPRESSION: 1. Chronic pansinusitis disease, which may be sinonasal polyposis or allergic f ungal sinusitis.
== END 2023-12-31 09:55 | disposition home or self-care (01) ==
LOC: CHSIMG 09:57
PROVIDERS: PCP Internal Medicine
DX: J33.0 Polyp of nasal cavity (principal); J32.4 Chronic pansinusitis
CPT/HCPCS: 70486

== ENCOUNTER 2024-01-03 12:34 | Outpatient (CLI) | payer OTHER, SELFPAY ==
[2024-01-05 13:14] LABS: Alternaria alternata IgE <0.10 kU/L; Alternaria alternata IgE Class 0; Aspergillus fumigatus IgE <0.10 kU/L; Bermuda Grass (G2) IgE <0.10 kU/L; Bermuda Grass (G2) IgE Class 0; Cat Dander IgE <0.10 kU/L; Cat Dander IgE Class 0; Cladosporium herbarum IgE <0.10 kU/L; Cladosporium herbarum IgE Clas 0; Cockroach IgE <0.10 kU/L; Cockroach IgE Clas 0; Cottonwood IgE <0.10 kU/L; Dermatophagoides Farinae Class 0; Dermatophagoides Pterony Class 0; Dermatophagoides Pteronyssinus <0.10 kU/L; Dog Dander IgE <0.10 kU/L; Elm (T8) IgE <0.10 kU/L; Elm (T8) IgE Class 0; Hickory/Pecan IgE <0.10 kU/L; Hickory/Pecan IgE Class 0; Maple Box Elder IgE Class 0; Mountain Cedar IgE 0.15 kU/L; Mountain Cedar IgE Class 0/1; Mouse Urine Proteins IgE <0.10 kU/L; Mouse Urine Proteins IgE Class 0; Peniciliium notatum class 0; Penicillium notatum (M1) IgE <0.10 kU/L; Sycamore IgE <0.10 kU/L; Sycamore IgE Class 0; Timothy Grass IgE 0.16 kU/L; Timothy Grass IgE Class 0/1; Walnut Tree IgE <0.10 kU/L; Walnut Tree IgE Class 0; White Ash IgE Class 0/1; White Mulberry IgE <0.10 kU/L; White Mulberry IgE Class 0
[2024-01-07 17:52] LABS: Common Ragweed IgE Class 0; Immunoglobulin E 171 kU/L (<OR=114); Rough Marsh <0.10 kU/L; Rough Marsh Elder Class 0; Rough Pigweed (W14) IgE <0.10 kU/L; Rough Pigweed (W14) IgE Class 0; Russian Thistle <0.10 kU/L
== END 2024-01-03 12:35 | disposition home or self-care (01) ==
PROVIDERS: PCP Internal Medicine
DX: J30.9 Allergic rhinitis, unspecified (principal)
CPT/HCPCS: 36415; 82785; 86003

== ENCOUNTER 2024-05-02 09:19 | Outpatient (CLI) | payer OTHER, SELFPAY ==
[2024-05-02 09:31] LABS: Hematocrit 47.8 % (40.0-54.0); Hemoglobin 15.6 g/dL (14.0-18.0); Mean Corpuscular HGB Conc 32.6 g/dL (32-36); Mean Corpuscular Hemoglobin 30.8 pg (27.0-31.0); Mean Corpuscular Volume 94.5 fL (78.0-102.0); Platelet Count Result 289 K/mm3 (150-420); Red Blood Count 5.06 M/mm3 (4.70-6.10); Red Cell Distribution Width 13.1 % (11.6-14.4); White Blood Count 8.5 K/mm3 (4.8-10.8)
[2024-05-02 09:46] LABS: Add Urine Microscopic? NO; Appearance Urine Clear (Clear); Bilirubin Urine Negative (Negative); Blood Urine Negative (Negative); Color Urine Yellow (Yellow); Glucose Urine UA Negative (Negative); Hemoglobin A1C 5.5 % (<5.7); Ketones Urine Negative (Negative); Leukocyte Esterase Ur Negative LEU/UL (Negative); Nitrate Urine Negative (Negative); Protein Urine Negative (Negative); Specific Grav Ur >= 1.030 (1.010-1.020); Urobilinogen Urine 0.2 mg/dL (0.2-1.0); pH Urine 5.5 (5.0-8.0)
[2024-05-02 09:57] LABS: Creatinine Urine 264.73 mg/dL (40-278); MALB Creatinine Ratio 4.9 mg/g (0-30); Microalbumin Urine Random < 13.0 mg/L
--- OUTSIDE RECORDS SUMMARY | 2024-05-02 10:05 | XMS_ITS | Referral Summary ---
Author Organization [address] Address [address] [place] [id number] Care Team Providers Care Therapeutic Consultant Name Role Phone Cornelius Diane MD Primary Care Provider + [phone] Allergies No known active allergies Medications Eliquis 5 mg tablet Take 5 mg by mouth 2 (two) times a day 0 Active montelukast (SINGULAIR) 10 mg tablet 0 Active triamcinolone (NASACORT) 55 mcg nasal inhalerIndicati ons:Allergic Rhinitis Administer 2 sprays into each nostril daily 16.9 mL 3 1 Active Additional Information Patient not taking.Reported on 07/16/2021 amiodarone (PACERONE) 200 mg tablet Take 400 mg by mouth daily 2 Active ZINC ORAL Take 1 tablet by mouth daily Active CHOLECALCIFEROL , VITAMIN D3, ORAL Take 1 capsule by mouth daily Active metoprolol XL (TOPROL-XL) 50 mg extended release tablet Take by mouth daily Active predniSONE (DELTASONE) 5 mg tablet TAKE 3 TABLETS BY MOUTH EVERY DAY FOR 10 DAYS, THEN 2 TABLETS DAILY UNTIL FOLLOW UP APPT 2 Active aspirin 81 mg enteric coated tablet Take 81 mg by mouth daily Active Active Problems Problem Noted Date Diagnosed Date Chronic pansinusitis 03/05/2020 Deviated nasal septum 03/05/2020 Hypertrophy of both inferior nasal turbinates Immunizations Name Administration Dates Next Due Influenza, Quadrivalent, Spl it, Intramuscular 04/07/2017 Influenza, Quadrivalent, Spl it, Preservative Free, Intramuscular 02/13/2020,03/06/2019 Pneumococcal Conjugate PCV 13 09/25/2015 Pneumococcal Polysaccharide PPV23 03/06/2019,,03/02/2008 Tdap 04/07/2017 Social History Tobacco Use Types Packs/Day Years Used Date Smoking Tobacco: Some Days Cigars Smokeless Tobacco: Never Personal Safety Answer Date Recorded Getting School Help Needed Not on file 05/16 Sex and Gender Information Value Date Recorded Sex Assigned at Not on file Legal Sex Male 1:48 PM [employer] Gender Identity Not on file Sexual Orientation Not on file Last Filed Vital Signs Vital Sign Reading Time Taken Comments Blood Pressure 126/80 07/16/2021 2:03 PM CDT Pulse 62 07/16/2021 2:03 PM CDT Temperature 36.9 C (98.5 F) 07/16/2021 2:03 PM CDT Respiratory Rate 16 07/16/2021 2:03 PM CDT Oxygen Saturation 100% 07/16/2021 2:03 PM CDT Inhaled Oxygen Concentration - - Weight 95.3 kg (210 lb) 07/16/2021 2:03 PM CDT Height 188 cm (6' 2 ) 07/16/2021 2:03 PM CDT Body Mass Index 26.96 07/16/2021 2:03 PM CDT Plan of Treatment Not on file Procedures Procedure Name Priority Date/Time Associated Diagnosis Comments HEPATITIS C ANTIBODY Routine 07/16/2021 2:55 PM CDT 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 Does NOT exclude the possibility of recent exposure to HCV. Equivocal: Equivocal for HCV antibodies. Supplemental molecular testing will be automatically performed to determine infection status in accordance with current CDC screening recommendations. Reactive: Positive for HCV antibodies. This may represent current or past HCV infection. Supplemental molecular testing will be automatically performed to determine current infection status in accordance with current CDC screening recommendations. Interpretive data was last revised on 2019. Blood 07/16/2021 2:55 PM CDT 07/16/2021 6:25 PM CDT Annie Ibarra MD LAB MICROBIOLOGY - GENERAL ORDERABLES Final Result [facility] [id number] Department [place] [address] from Last 3 Months or Most Recently Relevant to Health Maintenance Insurance [facility] [employer] [employer] [facility] PPO [facility] PPO Care Teams Therapeutic Consultant Relationship Specialty Start Date End Date Cornelius Diane MD [address] [place] [address] PCP - General Internal Medicine 02/26/20
--- OUTSIDE RECORDS SUMMARY | 2024-05-02 10:05 | XMS_ITS | Data Portability ---
Author Organization [place] [facility] Main Office Address [address] [place] [address] Care Team Providers Care Accountant Certified Public Name Role Phone SEAN RODRIGUEZ Primary Care Provider [phone] SEAN RODRIGUEZ Referring Provider [phone] Assessment Encounter Date Assessment Date Assessment LastModified by Organization Details LastModified Time 08/11/2022 08/11/2022 59-year-old male 2 weeks status post left carpal tunnel release on 07/29/2022. Patient is doing well and sutures were removed today in clinic. He will continue applying Vaseline to his incision couple times a day to help with skin remodeling. He may begin some desensitization exercises to help with his hypersensitivity, sliding his palm on different surfaces as well as hot and cold temperature changes. He will follow up in 6 weeks for re-evaluation. beny Not available 08/11/2022 10:13:44 09/29/2022 09/29/2022 62-year-old male approximately 8 weeks status post left carpal tunnel release performed on 07/29/2022. His incision has healed well and he has a little bit of swelling, but was reassured that this should improve with time. He may continue using Vaseline or lotion and applying friction massage over the incision as well as performing desensitization exercises. He may perform his hand and thumb strengthening exercises that he was provided with from occupational therapy prior to his surgery. We discussed that given the severity of compression on the median nerve he may have some persistent residual numbness in the distal fingers of the median nerve distribution but should continue to improve with time. he may perform all activities without any restrictions and he will follow up as needed. [email or web address] Not available 09/29/2022 11:57:44 Plan of Treatment Reminders Order Date Submit Date Provider Last Modified By Organization Details Last Modified Time Details Appointments None record ed. Lab None record ed. Referral None record ed. Procedures None record ed. Surgeries None record ed. Imaging None record ed. Medication Orders None record ed. Patient TargetsNo targets recorded. Patient InstructionsNo instructions recorded. Reason for Referral None Reported. Results Created Date Observation Date Name Description Value Unit Range Abnormal Flag Note LastModifiedBy Organization Detail LastModifiedTime 03/10/20 22 XR, hand No observ ation record ed. [id number] [id number] [place] [address], [place], [address], 05/20/2022 23:12:35 03/10/20 22 elect romyo gram + nerve condu ction study No observ ation record ed. [id number] Not Available 05/20/2022 23:12:35 Result Notes None recorded. Problems Name Problem SNOMED Code Status Onset Date Resolution Date Notes Provider Name and Address Organization Details Recorded Time Pain of bilateral hands 8413901189701 9109 Active 2021 Not Available [facility] 3 23:11:08 Bilateral carpal tunnel syndrome 3818362291636 9101 Active 2022 BEE [place], [place] [facility] [employer] [facility] 3 10:11:06 Problem Notes None recorded. Procedures Surgical History Date Name Laterality Status Provider Name and Address Organization Details Recorded Time 1 ENDOSCOPY WITH REMOVAL OF SPHENOID SINUS TISSUE (SURG) completed Not Available [facility] 05/20/2022 23:12:30 Imaging Results Imaging Date Name Status LastModified by Organization Details LastModified Time 03/10/2022 XR, hand completed [id number] [id number] [place] [address], [place], [address], 05/20/2022 23:12:35 03/10/2022 electromyogram + nerve conduction study completed [id number] Information not available 05/20/2022 23:12:35 Procedure Notes None recorded. Medical Equipment None Reported. Medications Name Sig Start Date Stop Date Status Note LastModified by Organization Details LastModified Time amoxicillin 500 mg capsule 03/10 completed Not Available Not Available Not Available prednisone 10 mg tablet TAKE 2 TABS BY MOUTH TWICE A DAY IN THE MORNING AND EVENING active Not Available Not Available No t Available doxycycline hyclate 100 mg capsule active Not Available Not Available N ot Available clindamycin HCl 300 mg capsule active Not Available Not Available Not Available tizanidine 4 mg tablet TAKE 1 TABLET (4 MG) BY ORAL ROUTE EVERY 6 HOURS NEEDED NOT TO EXCEED 3 DOSES IN 24 HOURS active Not Available Not Available No t Available amiodarone 200 mg tablet TAKE 2 TABLETS BY MOUTH EVERY DAY active Not Available Not Available No t Available metoprolol succinate ER 50 mg tablet,exte nded release 24 hr TAKE 1 TABLET BY MOUTH NIGHTLY AT BEDTIME active Not Available Not Available No t Available diltiazem CD 240 mg capsule,ext ended release 24 hr TAKE 1 CAPSULE BY MOUTH EVERY DAY 03/04 completed Not Available Not Available Not Available prednisone 20 mg tablet 2 two tablets for 4 days then 1 tablet for 2 days active Not Available Not Available No t Available metoprolol succinate ER 100 mg tablet,exte nded release 24 hr TAKE 1 TABLET BY MOUTH TWICE DAILY FOR 28 DAYS active Not Available Not Available No t Available prednisone 5 mg tablet TAKE 1 TABLET BY MOUTH EVERY DAY active Not Available Not Available No t Available digoxin 250 mcg (0.25 mg) tablet TAKE 1 TABLET BY MOUTH DAILY FOR 28 DAYS. 03/10 completed Not Available Not Available Not Available Kenalog 10 mg/mL suspension for injection In office injection administe red by the provider active [facility]: 0003- 0494- 20 Not Available Not Available Not Available diltiazem CD 300 mg capsule,ext ended release 24 hr 03/10 completed Not Available Not Available Not Available hydrocodone 7.5 mg-acetamin ophen 325 mg tablet TAKE 1 TABLET BY MOUTH EVERY 4 HOURS NEEDED 11/21 completed Not Available Not Available Not Available prednisone 2.5 mg tablet TAKE 2 TABS DAILY FOR 10 DAYS AND THEN 1 TAB DAILY FOR 10 DAYS active Not Available Not Available No t Available pantoprazol e 40 mg tablet,dilan yed release TAKE 1 TABLET BY MOUTH EVERY DAY FOR 14 DAYS active Not Available Not Available No t Available Advair Diskus 250 mcg-50 mcg/dose powder for inhalation active Not Available Not Available N ot Available flecainide 100 mg tablet TAKE 1 TABLET BY MOUTH TWICE A DAY 09/26 completed Not Available Not Available Not Available diclofenac sodium 75 mg tablet,dilan yed release TAKE 1 TABLET BY MOUTH TWICE A DAY 03/10 completed Not Available Not Available Not Available montelukast 10 mg tablet 03/10 completed Not Available Not Available Not Available levofloxaci n 750 mg tablet Take 1 tablet every day by oral route for 5 days. active Not Available Not Available No t Available methylpredn isolone 4 mg tablets in a dose pack Take 1 dose pk by oral route. active Not Available Not Available No t Available ipratropium bromide 42 mcg (0.06 %) nasal spray 03/04 completed Not Available Not Available Not Available cefdinir 300 mg capsule Take 1 capsule every 12 hours by oral route. active Not Available Not Available No t Available fluticasone propionate 50 mcg/actuati on nasal spray,suspe nsion 03/04 completed Not Available Not Available Not Available amoxicillin 875 mg-potassiu m clavulanate 125 mg tablet 03/04 completed Not Available Not Available Not Available amiodarone 100 mg tablet TAKE 1 TABLET BY MOUTH EVERY DAY active Not Available Not Available No t Available albuterol sulfate 03/04 completed Not Available Not Available Not Available ropivacaine (PF) 5 mg/mL (0.5 %) injection solution Take 4 mg by injection route. active Not Available Not Available No t Available Eliquis 5 mg tablet TAKE 1 TABLET BY MOUTH TWICE A DAY active Not Available Not Available No t Available Eliquis 2.5 mg tablet 03/10 completed Not Available Not Available Not Available Dupixent 300 mg/2 mL subcutaneou s syringe Inject 2 mL every 2 weeks by subcutane ous route. 03/04 completed Not Available Not Available Not Available BinaxNOW COVID-19 Ag Self Test kit DIRECTED active Not Available Not Available No t Available Vitals Date Recorded Body mass index (BMI) Body height Body weight Provider Name and Address Organization Details Last Updated DateTime 05/20/2022 30.8 kg/m2 187.96 cm 208028.17 g Not Available [facility] 05/20/2022 23:10:42 Date Recorded Body height Body mass index (BMI) Body weight Provider Name and Address Organization Details Last Updated DateTime 07/14/2022 187.96 cm 30.8 kg/m2 900938.17 margy Roroguy BEE Parikh [facility] 07/14/2022 10:10:43 Date Recorded Body height Body mass index (BMI) Body weight Provider Name and Address Organization Details Last Updated DateTime 08/11/2022 187.96 cm 31.5 kg/m2 791237.13 margy Dana Wilson, ATC L [facility] 08/11/2022 09:22:49 Date Recorded Body height Body mass index (BMI) Body weight Provider Name and Address Organization Details Last Updated DateTime 09/29/2022 187.96 cm 31.2 kg/m2 181168.95 margy Dana Olivierkrishna, ATC L [facility] 09/29/2022 11:12:35 Social History Question Answer Notes LastModified by Organizat ion Details LastModified Time Tobacco Smoking Status Never Smoker Edwina schultz, [facility] 07/14/2022 10:07:06 What Is Your Level Of Alcohol Consumption? Occasional [id number] Information not available 05/20/2022 In The 14 Days Before Symptom Onset, Have You Had Close Contact With A Laboratory-confirm ed COVID-19 While That Case Was Ill? No Information n ot available 07/14/2022 In The 14 Days Before Symptom Onset, Have You Had Close Contact With A Person Who Is Under Investigation For COVID-19 While That Person Was Ill? No Information not available 07/14/2022 Have You Recently Traveled Abroad? No Information not available 07/14/2022 Sex: Unknown Functional Status None recorded. Mental Status None recorded. Family History Nothing Reported. Medical History Condition Response SLEEP APNEA N MRSA N ALLERGIES/HAYFEVER N LUNG DISEASE/DISORDER Y INSOMNIA N RADIATION / CHEMOTHERAPY N COPD N HIGH CHOLESTEROL / HYPERLIPIDEMIA N HYPERTHYROIDISM N BLOOD DISEASES N EAR OR HEARING PROBLEMS N HYPOTHYROIDISM N DEPRESSION (INCLUDING POST ) N HAVE YOU BEEN HOSPITALIZED OR SEEN IN [facility] ER IN THE PAST YEAR ? N STROKE/TIA N ULCERS N OBESITY N HISTORY WITH COMPLICATIONS WITH ANESTHES IA ? N ANEURYSM N NO SIGNIFICANT PAST MEDICAL HISTORY N USE OF BLOOD THINNERS Y DIABETES, TYPE N PARATHYROID DISEASE N ENT N SEASONAL ALLERGIES Y HEARTBURN / REFLUX N HEPATITIS / LIVER DISEASE N SLEEP DISORDER N HEADACHES/MIGRAINES N SEIZURES/EPILEPSY N CHF N PACEMAKER N DIZZINESS N HEART DISEASE/HEART PROBLEMS N AIDS/HIV N FRACTURES N HYPERTENSION N CANCER: SPECIFY N TOURETTE'S N BLOOD TRANSFUSION N ANESTHESIA COMPLICATIONS N ANEMIA/BLOOD DISORDER N CHRONIC EAR INFECTIONS N TUBERCULOSIS N Past Encounters Encounter ID Performer Location Encounter Start Date Encounter Closed Date Diagnosis/Indication Diagnosis SNOMED-CT Code Diagnosis ICD10 Code Diagnosis Note [id number] [facility] [place] [address] [place] [address] 09/26/2020 00:00:00 09/26/2020 16:24:59 [id number] [facility] [place] [address] [place] [address] 11/21/2020 00:00:00 11/21/2020 11:38:10 [id number] [facility] [place] [address] [place] [address] 01/09/2021 00:00:00 01/09/2021 16:41:42 [id number] [facility] [place] [address] [place] [address] 01/28/2021 00:00:00 01/28/2021 11:32:29 [id number] [facility] [place] [address] [place] [address] 03/04/2021 00:00:00 03/04/2021 14:55:05 [id number] [facility] [place] [address] [place] [address] 03/10/2022 00:00:00 03/10/2022 13:45:09 [id number] [facility] [place] [address] [place] [address] 05/12/2022 00:00:00 05/12/2022 12:25:03 [id number] Iker Hill MD [facility] [place] [address] [place] [address] 07/14/2022 10:06:12 07/14/2022 10:27:00 Pain of bilateral hands 6929603271 0971683 M79.641 M79.642 Bilateral carpal tunnel syndrome 0727893399 1417606 G56.03 patient needs to have the left carpal tunnel released he has lost a little bit of muscle will has a numbness and tingling on the left he understand s the risk the benefits and alternativ es having failed extensive conservati ve treatment wishes to proceed with left carpal tunnel release [id number] CATIE Mahoney [facility] [place] [address] [place] [address] 08/11/2022 09:16:48 08/11/2022 09:49:57 Bilateral carpal tunnel syndrome 4412735031 0372718 G56.03 Pain of bi lateral hands 7520445349 3591453 M79.641 M79.642 [id number] CATIE Mahoney [facility] [place] [address] [place] [address] 09/29/2022 11:07:05 09/29/2022 11:24:13 Bilateral carpal tunnel syndrome 7714513303 1466999 G56.03 Pain of bi lateral hands 2710484818 2490042 M79.641 M79.642 Health Concerns Section Related Observation LastModified by Organization Detai ls LastModified Time None Recorded Concern Status LastModified by Organization Details LastModified Time None Recorded Advance Directives Directive None Recorded Payers Encounter Date Sequence Insurance Name Policy Number Policy Velazquez Covered Member ID Velazquez Member ID Guarantor Name 07/14/2022 1 [employer] [id number] Mikhail A Levi [id number] Mikhail Levi 08/11/2022 1 [employer] [id number] Mikhail A Levi [id number] Mikhail Levi 09/29/2022 1 [employer] [id number] Mikhail A Elvi [id number] Mikhail Sims Notes Date Note Type Note Provider Name and Address Organization Details Recorded Time 07/14/2022 text/html Patient returns today for severe left carpal tunnel and moderate on the right. Right is doing well but he still numb on the left and is noticing now a little weakness on the left Iker Hill MD [address], [place], [address], [employer] 07/14/2022 12:28:24 08/11/2022 text/html 61-year-old male 2 weeks status post left carpal tunnel release on 07/29/2022. Patient reports that his pain has been well controlled. He notes improvement of his numbness and tingling. CATIE Mahoney [address], [address], [place], [address], [employer] 08/11/2022 10:14:24 09/29/2022 text/html 62-year-old male approximately 2 months status post left carpal tunnel release performed on 07/29/2022. Patient has been doing well and he states that he has had improvement of his numbness in his hands but continues to have some persistent numbness in the distal fingers of the median nerve distribution. he also notes occasional tenderness when he applies pressure over the incision when pushing objects with his palm. CATIE Mahoney [address], [place], [address], [employer] 09/29/2022 11:58:33
--- OUTSIDE RECORDS SUMMARY | 2024-05-02 10:06 | XMS_ITS | Encounter Summary ---
Author Organization [facility] Address [address] [place] [address] Care Team Providers Care Dividing Machine Operator Name Role Phone Cornelius Diane MD Primary Care Provider [phone] Damion BarryC Unavailable [phone] Encounter Details Date Type Department Care Team (Late st Contact Info) Description 03/25/2021 Hospital Follow-up Call [facility] [address] [place] [address] Sugey Solares RN Social History Tobacco Use Types Packs/Day Years Used Date Smoking Tobacco: Never Smokeless Tobacco: Never Alcohol Use Standard Drinks/Week Comments Yes 1.7 (1 standard drink = 0.6 oz p ure alcohol) AUDIT-C Answer Date Recorded Frequency of Alcohol Consumption Never 02/27/2019 Average Number of Drinks Not on file 019 Frequency of Binge Drinking Not on file 11/2018 Sex and Gender Information Value Date Recorded Sex Assigned at Male 04/05/2024 10:19 AM MANPOWER DEVELOPMENT ADVISOR Legal Sex Male 9:10 AM MANPOWER DEVELOPMENT ADVISOR Gender Identity Not on file Sexual Orientation Not on file COVID-19 Exposure Response Date Recorded In the last month, have you been in contact with someone who was confirmed or suspected to have Coronavirus / COVID-19? No / Unsure 03/27/2021 10:07 PM MANPOWER DEVELOPMENT ADVISOR documented as of this encounter Functional Status * Question Answer Date of Assessment Author Status Do you have serious difficulty walking or climbing stairs? No 03/27/2021 10:08 PM MANPOWER DEVELOPMENT ADVISOR Bart Sanabria V, RN Ac tive * Question Answer Date of Assessment Author Status Do you have difficulty dressing or bathing? No 03/27/2021 10:08 PM Bart Orr R N Active Because of a physical, mental, or emotional condition, do you have difficulty doing errands alone such as visiting a doctor's office or shopping? No 03/27/2021 10:08 PM Bart Orr RN Act giorgio * RETIRED Are you deaf or do you have serious difficulty hearing Answer Date of Assessment Author Status No 03/21/2021 7:52 PM MANPOWER DEVELOPMENT ADVISOR Activ e * RETIRED Are you blind or do you have serious difficulty seeing, even when wearing glasses? Answer Date of Assessment Author Status No 03/21/2021 7:52 PM MANPOWER DEVELOPMENT ADVISOR Activ e * Do you have serious difficulty walking or climbing stairs? Answer Date of Assessment Author Status No 03/21/2021 7:52 PM Adriana Aviles RN Active * Do you have difficulty dressing or bathing? Answer Date of Assessment Author Status No 03/21/2021 7:52 PM Adriana Aviles RN Active * Because of a physical, mental, or emotional condition, do you have difficulty doing errands alone such as visiting a doctor's office or shopping? Answer Date of Assessment Author Status No 03/21/2021 7:52 PM Adriana Aviles RN Active documented as of this encounter Mental Status * Question Answer Entry Date Author Status Because of a physical, mental, or emotional condition, do you have serious difficulty concentrating, remembering, or making decisions? No 03/27/2021 10:08 PM Bart Orr RN Active * Because of a physical, mental, or emotional condition, do you have serious difficulty concentrating, remembering, or making decisions? Answer Entry Date Author Status No 03/21/2021 7:52 PM Adriana Aviles RN Active documented in this encounter Plan of Treatment Not on file documented as of this encounter Visit Diagnoses Not on filedocumented in this encounter Additional Health Concerns Infection Onset Date Last Indicated Resolved Time COVID-19 Rule Out 03/27/2021 03/27/2021 03/27/2021 5:30 PM MANPOWER DEVELOPMENT ADVISOR COVID-19 Rule Out 04/06/2021 04/06/202104/10/2021 1:15 PM MANPOWER DEVELOPMENT ADVISOR documented as of this encounter Care Teams Dividing Machine Operator Relationship Specialty Start Date End Date Cornelius Diane MD [address] [place] [address] PCP - General INTERNAL MEDICINE 02/27/19 Damion Barry, PAKelinC [address] [place] [address] PHYSICIAN REEL SLITTER 04/05/24 documented as of this encounter
--- OUTSIDE RECORDS SUMMARY | 2024-05-02 10:06 | XMS_ITS | Clinical Summary ---
Author Organization [facility] Address [address] [place] [address] Care Team Providers Care Improvement Director Name Role Phone Cornelius Diane MD Primary Care Provider [phone] Damion Barry PA-C Unavailable [phone] Allergies No known active allergies Medications BREO ELLIPTA 200-25 MCG/ACT inhaler 10/09/19 23 Active ipratropium (ATROVENT) 0.06 % nasal spray 10/09/19 23 Active apixaban (ELIQUIS) 5 MG tabletIndication s:Paroxysmal atrial fibrillation ([facility]) take 1 tablet by mouth twice a day 180 tablet 3 09/20/19 24 Active metoprolol succinate ER (TOPROL-XL) 50 MG 24 hr tablet Take 0.5 tablets (25 mg total) by mouth nightly at bedtime. 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 Rapid atrial fibrillation ([facility]/HCC) 03/22 Atrial fibrillation with RVR ([facility]) 0 03/27/2021 Atrial fibrillation ([facility]) 03/21/2021 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 01/2020 Atrial fibrillation with rap id ventricular response ([facility]) 02/27/2019 Chest discomfort 02/27/2019 Encounters Date Type Department Care Team Description 04/18/2024 Telephone [facility] [address] [place] [address] Damion Barry PA-C Medication Information 04/18/2024 Orders Only [facility] [address] [place] [address] Damion Barry PA-C 04/13/2024 MyChart Message Enc [facility] [place] [address] [place] [address] Damion Barry PA-C Tropol -Skin Itching 04/05/2024 10:30 AM CONTINGENTS SUPERVISOR Office Visit [facility] [place] [address] [place] [address] Damion Barry PA-C Atrial Fibrillation; Follow Up 04/05/2024 Travel 04/04/2024 Orders Only [facility] [place] [address] [place] [address] Madonna Eisenberg MD from Last 3 Months Family History Medical History Relation Comments Heart Disease Father Atrial fibrillation Mother Relation Status Comments Father Mother Social History Tobacco Use Types Packs/Day Years Used Date Smoking Tobacco: Never Smokeless Tobacco: Never Tobacco Cessation:Counseling Given: No Alcohol Use Standard Drinks/Week Comments Yes 1.7 (1 standard drink = 0.6 oz p ure alcohol) AUDIT-C Answer Date Recorded Frequency of Alcohol Consumption Never 02/27/2019 Average Number of Drinks Not on file 019 Frequency of Binge Drinking Not on file 11/2018 Sex and Gender Information Value Date Recorded Sex Assigned at Male 04/05/2024 10:19 AM CONTINGENTS SUPERVISOR Legal Sex Male 9:10 AM CONTINGENTS SUPERVISOR Gender Identity Not on file Sexual Orientation Not on file Last Filed Vital Signs Vital Sign Reading Time Taken Comments Blood Pressure 102/62 04/05/2024 10:30 AM CONTINGENTS SUPERVISOR Pulse 61 04/05/2024 10:30 AM CONTINGENTS SUPERVISOR Temperature 36.8 C (98.2 F) 10/25/2022 6:46 AM CDT Respiratory Rate 16 04/05/2024 10:30 AM CONTINGENTS SUPERVISOR Oxygen Saturation 97% 04/05/2024 10:30 AM CONTINGENTS SUPERVISOR Inhaled Oxygen Concentration - - Weight 121.1 kg (267 lb) 04/05/2024 10:30 AM CONTINGENTS SUPERVISOR Height 188 cm (6' 2 ) 04/05/2024 10:30 AM CONTINGENTS SUPERVISOR Body Mass Index 34.28 04/05/2024 10:30 AM CONTINGENTS SUPERVISOR Plan of Treatment Health Maintenance Due Date Last Done Comments Colorectal Cancer Screening Colonoscopy (10 Years) 1960 Annual Physical 08/30/1962 Zoster Vaccines (1 of 2) 08/30/2009 RSV Immunization or 60+ Years (1 - Risk 60-74 years 1-dose series) 2019 COVID-19 Vaccine ( - season) 2023 Influenza Adult (#1) 2023 02/13/2020, 03/06/2019, 04/07/2017 DTaP, Tdap and Td Vaccines (2 - Td or Tdap) 04/07/2027 04/07/2017 Pneumococcal Vaccine: Pediatrics (0 to 5 Years) and At-Risk Patients (6 to 64 Years) Aged Out 03/06/2019, 09/25/2015, 03/14/2014, Additional history exists No longer eligible based on patient's age to complete this topic Hepatitis C Completed 07/16/2021, 03/23, 04/13/2021 Meningococcal B Vaccine Aged Out No l onger eligible based on patient's age to complete this topic Meningococcal Vaccine Aged Out No bernice helena eligible based on patient's age to complete this topic RSV Immunizations Under 20 Months Aged Out No longer eligible based on patient's age to complete this topic Goals Goal Patient Goal Type Associated Problems Recent Progress Patient-Stated? Author Safety Patient/family will have appropriate support at home upon discharge General No Iris Morel, senior financial analyst Procedure Name Priority Date/Time Associated Diagnosis Comments ELECTROCARDIOGRAM (NON MIDMARK ACQUIRED) Routine 04/05/2024 10:36 AM CONTINGENTS SUPERVISOR Atrial fibrillation with rapid ventricular response (CMS/HCC HHS/HCC) HEPATITIS C ANTIBODY Routine 04/18/2021 3:34 PM CONTINGENTS SUPERVISOR from Last 3 Months or Most Recently Relevant to Health Maintenance Results * ELECTROCARDIOGRAM (04/05/2024 10:36 AM CONTINGENTS SUPERVISOR) 04/05/2024 10:3 6 AM CONTINGENTS SUPERVISOR Narrative [facility] - 04/10/2024 7:57 AM CONTINGENTS SUPERVISOR [facility] [address] [place] [address] Test Date: 2024-04-05 Pat Name: [facility] Department: 105 Room: Gender: Male I O Psychologist: gurwinder : 1960 Requested By: MADONNA EISENBERG Order Number: [id number] Reading MD: Madonna Eisenberg Measurements Intervals [place] Rate: 63 P: 61 MN: 188 QRS: 47 QRSD: 90 T: 54 QT: 377 QTc: 386 Interpretive Statements SINUS RHYTHM WITH OCCASIONAL SUPRAVENTRICULAR PREMATURE COMPLEXES POSSIBLE RIGHT VENTRICULAR CONDUCTION DELAY ST DEVIATION AND MODERATE T-WAVE ABNORMALITY, CONSIDER ANTERIOR ISCHEMIA INGENTS SUPERVISOR Procedure Note Madonna Eisenberg MD - 04/10/2024 [facility] [address] [place] [id number] Test Date: 2024-04-05 Pat Name: [facility] Department: 105 Room: Gender: Male I O Psychologist: gurwinder : 1960 Requested By: MADONNA EISENBERG Order Number: [id number] Reading MD: Madonna Eisenberg Measurements Intervals [place] Rate: 63 P: 61 MN: 188 QRS: 47 QRSD: 90 T: 54 QT: 377 QTc: 386 Interpretive Statements SINUS RHYTHM WITH OCCASIONAL SUPRAVENTRICULAR PREMATURE COMPLEXES POSSIBLE RIGHT VENTRICULAR CONDUCTION DELAY ST DEVIATION AND MODERATE T-WAVE ABNORMALITY, CONSIDER ANTERIOR ISCHEMIA INGENTS SUPERVISOR us Madonna Eisenberg MD PROCEDURES-ORDERABLE NO CHARGE F inal Result [facility] * HEPATITIS C ANTIBODY (04/18/2021 3:34 PM CONTINGENTS SUPERVISOR) HEPATITIS C AB NON-REACTI VE NON-REACT BEN 04/18/2021 6:[address] [facility] Comment: ANTIBODIES TO HCV NOT DETECTED. DOES NOT EXCLUDE THE POSSIBILITY OF EXPOSURE TO HCV. 04/18/2021 3:34 PM CONTINGENTS SUPERVISOR Mary Lobo MD LABORATORY Final Result [facility] [address] [place] [address], [phone] from Last 3 Months or Most Recently Relevant to Health Maintenance Insurance AETNA AETNA AETNA Advance Directives * Full Code (Latest Code Status on File) Date Activated Date Inactivated Comments 04/06/2021 2:29 AM 04/20/2021 5:26 PM * Full Code Date Activated Date Inactivated Comments 03/27/2021 6:23 PM 03/28/2021 5:20 PM * Full Code Date Activated Date Inactivated Comments 03/21/2021 7:52 PM 03/22/2021 7:30 PM * Full Code Date Activated Date Inactivated Comments 02/27/2019 1:04 PM 03/01/2019 7:39 PM Care Teams Improvement Director Relationship Specialty Start Date End Date Cornelius Diane MD [address] [place] [address] PCP - General INTERNAL MEDICINE 02/27/19 Damion Barry PAKelinC [address] [place] [address] PHYSICIAN HOTEL MANAGER 04/05/24
--- OUTSIDE RECORDS SUMMARY | 2024-05-02 10:06 | XMS_ITS | Encounter Summary ---
Author Organization [facility] Address [address] [place] [address] Care Team Providers Care Sueding Machine Operator Name Role Phone Cornelius Diane MD Primary Care Provider [phone] Damion Barry PA-C Unavailable [phone] Encounter Details Date Type Department Care Team (Late st Contact Info) Description 04/13/2024 [employer] Message Enc [facility] [address] [place] [address] Damion Barry PA-C [address] [place] [address] Tropol -Skin Itching Social History Tobacco Use Types Packs/Day Years [...] Sex Assigned at Male 04/05/2024 10:19 AM ELEMENT WINDING MACHINE TENDER Legal Sex Male 9:10 AM ELEMENT WINDING MACHINE TENDER Gender Identity Not on file Sexual Orientation Not on file documented as of this encounter Functional Status * RETIRED Are you deaf or do you have serious difficulty hearing Answer Date of Assessment Author Status No 04/06/2021 9:30 PM ELEMENT WINDING MACHINE TENDER Activ e * RETIRED Are you blind or do you have serious difficulty seeing, even when wearing glasses? Answer Date of Assessment Author Status No 04/06/2021 9:30 PM ELEMENT WINDING MACHINE TENDER Activ e * Do you have serious difficulty walking or climbing stairs? Answer Date of Assessment Author Status No 04/06/2021 9:30 PM Paz Crane RN Active * Do you have difficulty dressing or bathing? Answer Date of Assessment Author Status No 04/06/2021 9:30 PM Paz Crane RN Active * Because of a physical, mental, or emotional condition, do you have difficulty doing errands alone such as visiting a doctor's office or shopping? Answer Date of Assessment Author Status No 04/06/2021 9:30 PM Paz Crane RN Active documented as of this encounter Mental Status * Because of a physical, mental, or emotional condition, do you have serious difficulty concentrating, remembering, or making decisions? Answer Entry Date Author Status No 04/06/2021 9:30 PM Paz Crane RN Active documented in this encounter Plan of Treatment Not on file documented as of this encounter Goals Goal Patient Goal Type Associated Problems Recent Progress Patient-Stated? Author Safety Patient/family will have appropriate support at home upon discharge General No Iris Morel RN documented as of this encounter Visit Diagnoses Not on filedocumented in this encounter Care Teams Sueding Machine Operator Relationship Specialty Start Date End Date Cornelius Diane MD [address] [place] [address] PCP - General INTERNAL MEDICINE 02/27/19 Damion Barry PAKelinC [address] [place] [address] PHYSICIAN GUITAR TECHNICIAN 04/05/24 documented as of this encounter
--- OUTSIDE RECORDS SUMMARY | 2024-05-02 10:06 | XMS_ITS | Encounter Summary ---
Author Organization [facility] Address [address] [place] [address] Care Team Providers Care Storekeeper Helper Name Role Phone Cornelius Diane MD Primary Care Provider [phone] Damion BarryC Unavailable [phone] Encounter Details Date Type Department Care Team (Late st Contact Info) Description 04/05/2021 [facility] [place] [facility] [address] [place] [phone] Gregorio Rodriguez MD [address] [place], [place] [address] Social History Tobacco Use Types Packs/Day Years [...] Sex Assigned at Male 04/05/2024 10:19 AM CUSTOM SHOE DESIGNER AND MAKER Legal Sex Male 9:10 AM CUSTOM SHOE DESIGNER AND MAKER Gender Identity Not on file Sexual Orientation Not on file COVID-19 Exposure Response Date Recorded In the last month, have you been in contact with someone who was confirmed or suspected to have Coronavirus / COVID-19? No / Unsure 04/06/2021 9:43 PM CUSTOM SHOE DESIGNER AND MAKER documented as of this encounter Functional Status * Question Answer Date of Assessment Author Status Do you have serious difficulty walking or climbing stairs? No 04/06/2021 9:30 PM Paz Crane RN A ctive * Question Answer Date of Assessment Author Status Do you have difficulty dressing or bathing? No 04/06/2021 9:30 PM Paz Crane RN Active Because of a physical, mental, or emotional condition, do you have difficulty doing errands alone such as visiting a doctor's office or shopping? No 04/06/2021 9:30 PM Paz Crane RN Ac tive * RETIRED Are you deaf or do you have serious difficulty hearing Answer Date of Assessment Author Status No 03/27/2021 10:08 PM CUSTOM SHOE DESIGNER AND MAKER Acti ve * RETIRED Are you blind or do you have serious difficulty seeing, even when wearing glasses? Answer Date of Assessment Author Status No 03/27/2021 10:08 PM CUSTOM SHOE DESIGNER AND MAKER Acti ve * Do you have serious difficulty walking or climbing stairs? Answer Date of Assessment Author Status No 03/27/2021 10:08 PM Bart Orr RN Active * Do you have difficulty dressing or bathing? Answer Date of Assessment Author Status No 03/27/2021 10:08 PM Bart Orr RN Active * Because of a physical, mental, or emotional condition, do you have difficulty doing errands alone such as visiting a doctor's office or shopping? Answer Date of Assessment Author Status No 03/27/2021 10:08 PM Bart Orr RN Active documented as of this encounter Mental Status * Question Answer Entry Date Author Status Because of a physical, mental, or emotional condition, do you have serious difficulty concentrating, remembering, or making decisions? No 04/06/2021 9:30 PM Paz Crane RN Active * Because of a physical, mental, or emotional condition, do you have serious difficulty concentrating, remembering, or making decisions? Answer Entry Date Author Status No 03/27/2021 10:08 PM Bart Orr RN Active documented in this encounter Progress Notes * Gregorio Rodriguez MD - 04/05/2021 10:29 PM CST Received a phone call from [employer]. [facility] population with heart isin the 150s. Hemodynamically stable 113/77 mmHg. He has failed flecainide. Recommended stopping flecainide. Will continue control strategy for now With intravenous digoxin loading. If needed, will consider amiodarone loading tomorrow. OM SHOE DESIGNER AND MAKER documented in this encounter Plan of Treatment [...] Last Indicated Resolved Time COVID-19 Rule Out 04/06/2021 04/06/2021 04/10/2021 1:15 PM CUSTOM SHOE DESIGNER AND MAKER documented as of this encounter Care Teams Storekeeper Helper Relationship Specialty Start Date End Date Cornelius Diane MD [address] [place] [address] PCP - General INTERNAL MEDICINE 02/27/19 Damion Barry PAKelinC [address] [place] [address] PHYSICIAN E COMMERCE MERCHANDISING COORDINATOR 04/05/24 documented as of this encounter
--- OUTSIDE RECORDS SUMMARY | 2024-05-02 10:06 | XMS_ITS | Encounter Summary ---
Author Organization [facility] Address [address] [place] [address] Care Team Providers Care Adventure Challenge Instructor Name Role Phone Cornelius Diane MD Primary Care Provider [phone] Damion Barry PA-C Unavailable [phone] Encounter Details Date Type Department Care Team ([facility] Contact Info) Description 11/19/2023 [employer] Message Enc [facility] [address] [place] [address] Damion Barry PA-C [address] [place] [address] Monitor results Social History Tobacco Use Types Packs/Day Years [...] Sex Assigned at Male 04/05/2024 10:19 AM MUD TRUCKER Legal Sex Male 9:10 AM MUD TRUCKER Gender Identity Not on file Sexual Orientation Not on file documented as of this encounter Functional Status * RETIRED Are you deaf or do you have serious difficulty hearing Answer Date of Assessment Author Status No 04/06/2021 9:30 PM MUD TRUCKER Activ e * RETIRED Are you blind or do you have serious difficulty seeing, even when wearing glasses? Answer Date of Assessment Author Status No 04/06/2021 9:30 PM MUD TRUCKER Activ e * Do you have serious [...] on filedocumented in this encounter Care Teams Adventure Challenge Instructor Relationship Specialty Start Date End Date Cornelius Diane MD [address] [place] [address] PCP - General INTERNAL MEDICINE 02/27/19 Damion Barry, PAKelinC [address] [place] [address] PHYSICIAN CAN FEEDER 04/05/24 documented as of this encounter
--- OUTSIDE RECORDS SUMMARY | 2024-05-02 10:06 | XMS_ITS | Clinical Summary ---
Author Organization [address] Address [address] [place] [address] Care Team Providers Care Sales Representative Livestock Name Role Phone Cornelius Diane MD Primary Care Provider [phone] Allergies No known active allergies Medications Eliquis [...] 09/25/2015 Pneumococcal Polysaccharide PPV23 03/06/2019,,03/02/2008 Tdap 04/07/2017 Surgical History Surgery Date Site/Laterality Comments ADENOIDECTOMY W/ MYRINGOTOMY AND TUBES TONSILLECTOMY ORAL SURGERY Medical History Medical History Date Comments Allergic rhinitis Asthma Sinusitis Atrial fibrillation (CMS/HCC) (HCC) Family History Medical History Relation Name Comments Alcohol abuse Brother Atrial fibrillation Mother Cancer Mother Heart disease Mother Atrial fibrillation Sister Heart disease Sister Relation Name Status Comments Brother Father Alive Mother Alive Sister Alive Social History Tobacco Use Types Packs/Day Years Used Date Smoking Tobacco: Some Days Cigars Smokeless Tobacco: Never Personal Safety Answer Date Recorded Getting School Help Needed Not on file 05/16 Sex and Gender Information Value Date Recorded Sex Assigned at Not on file Legal Sex Male 1:48 PM SODA FOUNTAIN CLERK Gender Identity Not on file Sexual Orientation Not on file Obstetrics History Last Filed Vital Signs Vital Sign Reading [...] 07/16/2021 2:03 PM CDT Plan of Treatment Health Maintenance Due Date Last Done Comments Colon Cancer Screening-Colonoscopy 1960 Depression Screening 1960 Prostate Cancer Screening-PSA 1960 Hepatitis B Screening 08/30/1977 Regular Well Visit/Exam 18-64 08/30/1977 Zoster Vaccine (1 of 2) 08/30/2009 Influenza Vaccine (#1) 2023 0, 03/06/2019, 04/07/2017 Pneumococcal vaccine <65 (3 of 3 - PPSV23 or PCV20) 08/30/2024 03/06/2019, 09/25/2015, 03/14/2014, Additional history exists DTaP/Tdap/Td Vaccine (2 - Td or Tdap) 04/07/2027 04/07/2017 Hepatitis C Screening Completed 07/16/2021 Procedures Procedure Name Priority Date/Time Associated Diagnosis Comments HEPATITIS C ANTIBODY Routine 07/16/2021 2:55 PM CDT ANCA-associated vasculitis (CMS/HCC) (HCC) Other eosinophilia Encounter for medication monitoring Skin rash Numbness and tingling from Last 3 Months or Most Recently Relevant to Health Maintenance Results * Hepatitis C antibody (07/16/2021 2:55 PM CDT) Hep C Ab Nonreactive Nonreactive [facility] Comment: Interpretive Data Nonreactive: Antibodies to HCV [...] LAB MICROBIOLOGY - GENERAL ORDERABLES Final Result [facility] [address] [place] [address] from Last 3 Months or Most Recently Relevant to Health Maintenance Insurance AETNA [facility] HMO [facility] PPO [facility] PPO Care Teams Sales Representative Livestock Relationship Specialty Start Date End Date Cornelius Diane MD [address] [place] [address] PCP - General Internal Medicine 02/26/20
--- OUTSIDE RECORDS SUMMARY | 2024-05-02 10:06 | XMS_ITS | Encounter Summary ---
Author Organization [facility] Address [address] [place] [address] Care Team Providers Care Hvac Tech Name Role Phone Cornelius Diane MD Primary Care Provider Damion Barry PA-C Unavailable [phone] Encounter Details Date Type Department Care Team (Late st Contact Info) Description 03/31/2021 Hospital Follow-up Call [facility] [address] [place] [address] Sugey Solares, RN Social History Tobacco Use Types Packs/Day [...] Sex Assigned at Male 04/05/2024 10:19 AM ELECTRICAL CONTROLS ASSEMBLER Legal Sex Male 9:10 AM ELECTRICAL CONTROLS ASSEMBLER Gender Identity Not on file Sexual Orientation Not on file COVID-19 Exposure Response Date Recorded In the last month, have you been in contact with someone who was confirmed or suspected to have Coronavirus / COVID-19? No / Unsure 03/27/2021 10:07 PM ELECTRICAL CONTROLS ASSEMBLER documented as of this encounter Functional Status * RETIRED Are you deaf or do you have serious difficulty hearing Answer Date of Assessment Author Status No 03/27/2021 10:08 PM ELECTRICAL CONTROLS ASSEMBLER Acti ve * RETIRED Are you blind or do you have serious difficulty seeing, even when wearing glasses? Answer Date of Assessment Author Status No 03/27/2021 10:08 PM ELECTRICAL CONTROLS ASSEMBLER Acti ve * Do you have serious [...] Orr RN Active documented in this encounter Plan of Treatment Not on file documented as of this encounter Visit Diagnoses Not on filedocumented in this encounter Additional Health Concerns Infection Onset Date Last Indicated Resolved Time COVID-19 Rule Out 04/06/2021 04/06/2021 04/10/2021 1:15 PM ELECTRICAL CONTROLS ASSEMBLER documented as of this encounter Care Teams Hvac Tech Relationship Specialty Start Date End Date Cornelius Diane MD [address] [place] [address] PCP - General INTERNAL MEDICINE 02/27/19 Damion Barry PAKelinC [address] [place] [address] PHYSICIAN HEAD MECHANIC 04/05/24 documented as of this encounter
[2024-05-02 10:33] LABS: Alanine Aminotransferase 20 U/L (16-63); Albumin Level 3.6 g/dL (3.4-5.0); Alkaline Phosphatase 108 U/L (46-116); Anion Gap 10 mmol/L (4-12); Aspartate Amino Transferase 11 U/L (15-37); Bilirubin,Total 0.6 mg/dL (0.00-1.00); Blood Urea Nitrogen 14 mg/dL (7-18); Calcium 8.6 mg/dL (8.5-10.1); Carbon Dioxide 28 mmol/L (21-32); Chloride 106 mmol/L (98-108); Cholesterol 177 mg/dL (0-200); Creatine Kinase 95 U/L (39-308); Estimated Glomerular Filt Rate 56; Glucose 98 mg/dL (70-99); HDL Direct 46 mg/dL (40-60); LDL Cholesterol Calculated 118 mg/dL (<130); Magnesium 1.9 mg/dL (1.8-2.4); NT Pro B Type Natriuretic Pept 82 pg/mL (0-125); Osmolality Calculated 298 mOsm/kg (285-295); Potassium 4.3 mmol/L (3.5-5.1); Prostate Specific Antigen 0.4 ng/mL (< OR = 4.0); Sodium 144 mmol/L (136-145); Triglycerides 64 mg/dL (0-150)
[2024-05-02 10:41] LABS: CRP < 0.5 mg/dL (0.0-0.9)
[2024-05-02 11:27] LABS: Band Neutrophils Percent 0 % (0-6); Basophils Absolute Manual 0.08 K/mm3 (0-0.1); Basophils Percent Manual 1 % (0-1); Eosinophils Absolute Manual 0.68 K/mm3 (0.02-0.50); Eosinophils Percent Manual 8 % (1-6); Lymphocytes Absolute Manual 1.78 K/mm3 (1.1-4.5); Lymphocytes Percent Manual 21 % (18-44); Monocytes Absolute Manual 0.68 K/mm3 (0.1-0.90); Monocytes Percent Manual 8 % (3-9); Neutrophils Absolute Manual 5.27 K/mm3 (1.3-6.7); Neutrophils Percent Manual 62 % (46-73); Total Cells Counted 100
[2024-05-02 11:28] LABS: Platelet Estimate Adequate (Adequate)
== END 2024-05-02 09:20 | disposition home or self-care (01) ==
LOC: CHSLAB 09:21
PROVIDERS: PCP Internal Medicine; Visit Provider Internal Medicine
DX: I10 Essential (primary) hypertension (principal); E78.2 Mixed hyperlipidemia; R73.01 Impaired fasting glucose; I48.0 Paroxysmal atrial fibrillation; N39.0 Urinary tract infection, site not specified
CPT/HCPCS: 36415; 80053; 80061; 81003; 82043; 82550; 83036; 83735; 83880; 84153; 85025; 86140; G0103

== ENCOUNTER 2025-01-12 08:42 | Outpatient (CLI) | payer MEDICARE, OTHER, SELFPAY ==
--- OUTSIDE RECORDS SUMMARY | 2025-01-12 08:54 | XMS_ITS | Encounter Summary ---
Author Organization [facility] Address [address] [place] [address] Care Team Providers Care Jalousies Installer Name Role Phone Cornelius Diane MD Primary Care Provider [phone] Damion Barry PA-C Unavailable [phone] Encounter Details Date Type Department Care Team ([facility] Contact Info) Description 11/19/2023 [email or web address] Message Enc [facility] [address] [place] [address] Damion Barry PA-C [address] [place] [address] Monitor results Social History Tobacco [...] Sex Assigned at Male 04/05/2024 10:19 AM SENSORY SCIENTIST Legal Sex Male 9:10 AM SENSORY SCIENTIST Gender Identity Not on file Sexual Orientation Not on file documented as of this encounter Functional Status * RETIRED Are you deaf or do you have serious difficulty hearing Answer Date of Assessment Author Status No 04/06/2021 9:30 PM SENSORY SCIENTIST Activ e * RETIRED Are you blind or do you have serious difficulty seeing, even when wearing glasses? Answer Date of Assessment Author Status No 04/06/2021 9:30 PM SENSORY SCIENTIST Activ e * Do you have serious [...] documented in this encounter Plan of Treatment Upcoming Encounters Date Type Department Care Team (Late st Contact Info) Description 08/02/2025 11:00 AM CDT [facility] [address] [place] [address] Damion Barry, PAKelinC [address] [place] [address] documented as of this encounter Goals Goal Patient Goal Type Associated Problems Recent Progress Patient-Stated? Author Safety Patient/family will have appropriate support at home upon discharge General No Iris Morel RN documented as of this encounter Visit Diagnoses Not on filedocumented in this encounter Care Teams Jalousies Installer Relationship Specialty Start Date End Date Cornelius Diane MD [address] [place] [address] PCP - General INTERNAL MEDICINE 02/27/19 Damion Barry PA-C [address] [place] [address] PHYSICIAN PENSION FUND MANAGER 04/05/24 documented as of this encounter
--- OUTSIDE RECORDS SUMMARY | 2025-01-12 08:54 | XMS_ITS | Encounter Summary ---
Author Organization [facility] Address [address] [place] [address] Care Team Providers Care Manager Access Name Role Phone Cornelius Diane MD Primary Care Provider [phone] Damion Barry PA-C Unavailable [phone] Encounter Details Date Type Department Care Team (Late st Contact Info) Description 03/31/2021 Hospital Follow-up Call [facility] [address] [place] [address] Sugey Solares, RN Social History Tobacco Use [...] Sex Assigned at Male 04/05/2024 10:19 AM DEPOSIT CLERK Legal Sex Male 9:10 AM DEPOSIT CLERK Gender Identity Not on file Sexual Orientation Not on file COVID-19 Exposure Response Date Recorded In the last month, have you been in contact with someone who was confirmed or suspected to have Coronavirus / COVID-19? No / Unsure 03/27/2021 10:07 PM DEPOSIT CLERK documented as of this encounter Functional Status * RETIRED Are you deaf or do you have serious difficulty hearing Answer Date of Assessment Author Status No 03/27/2021 10:08 PM DEPOSIT CLERK Acti ve * RETIRED Are you blind or do you have serious difficulty seeing, even when wearing glasses? Answer Date of Assessment Author Status No 03/27/2021 10:08 PM DEPOSIT CLERK Acti ve * Do you have serious [...] Description 08/02/2025 11:00 AM CDT Office Visit [facility] [address] [place] [phone] Damion Barry, XENIA [address] [place] [address] documented as of this encounter Visit Diagnoses Not on filedocumented in this encounter Additional Health Concerns Infection Onset Date Last Indicated Resolved Time COVID-19 Rule Out 04/06/2021 04/06/2021 04/10/2021 1:15 PM DEPOSIT CLERK documented as of this encounter Care Teams Manager Access Relationship Specialty Start Date End Date Cornelius Diane MD [address] [place] [phone] PCP - General INTERNAL MEDICINE 02/27/19 Damion Barry PA-C [address] [place] [address] PHYSICIAN PROMOTIONAL MARKETING AGENT 04/05/24 documented as of this encounter
--- OUTSIDE RECORDS SUMMARY | 2025-01-12 08:54 | XMS_ITS | Clinical Summary ---
Author Organization [facility] Address Formerly [facility] [place] [address] Care Team Providers Care Grinder Set Up Operator Gear Tool Name Role Phone Cornelius Diane MD Primary Care Provider [phone] Damion Barry PA-C Unavailable [phone] Allergies Active Allergy Reactions Criticality Noted Date Comments Budesonide Palpitations Low 10/18/2024 Medications BREO ELLIPTA 200-25 MCG/ACT inhaler 3 Active apixaban (ELIQUIS) 5 MG tabletIndication s:Paroxysmal atrial fibrillation (CMS/HCC HHS/HCC) take 1 tablet by mouth twice a day 180 tablet 3 4 Active metoprolol succinate ER (TOPROL-XL) 25 MG 24 hr tablet Take 1 tablet (25 mg total) by mouth daily. 90 tablet 3 5 Active budesonide (PULMICORT) 0.5 MG/2ML nebulizer solution Take 2 mLs (0.5 mg total) by nebulization 2 (two) times daily. 5 Active flecainide (TAMBOCOR) 100 MG tabletIndication s:Atrial fibrillation with rapid ventricular response (CMS/HCC HHS/HCC) Take 1 tablet (100 mg total) by mouth as needed. 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 Rapid atrial fibrillation 04/06/2021 Atrial fibrillation with RVR 03/27/2021 Atrial fibrillation 03/21/2021 Chronic anticoagulation 05/02/2019 [facility] current use of antiarrhythmic drug 01/2020 Atrial fibrillation with rapid ventricular respo nse 02/27/2019 Chest discomfort 02/27/2019 Encounters Date Type Department Care Team Description 12/13/2024 Telephone [facility] [address] [place] [address] Madonna Eisenberg MD Appointment Request 10/18/2024 2:00 PM CDT Office Visit [facility] [address] [place] [address] Damion Barry, PAKelinC Atrial Fibrillation; Other (Chronic antiarrhythmic drug therapy with flecainide monitoring.); Follow Up 10/18/2024 Travel 10/18/2024 Orders Only [facility] [address] [place] [address] Frankie Rick LPN 10/17/2024 Orders Only [facility] [address] [place] [address] Madonna Eisenberg MD from Last 3 Months Family History Medical History Relation Comments Heart Disease Father Atrial fibrillation Mother Relation Status Comments Father Mother Alive Social History Tobacco Use Types Packs/Day Years Used Date Smoking Tobacco: Never Smokeless Tobacco: Never Tobacco Cessation:Counseling Given: No Alcohol Use Standard Drinks/Week Comments Not Currently 0 (1 standard drink = 0.6 oz pur e alcohol) 1-2 times monthly AUDIT-C Answer Date Recorded Frequency of Alcohol Consumption Never 02/27/2019 Average Number of Drinks Not on file 019 Frequency of Binge Drinking Not on file 11/2018 Sex and Gender Information Value Date Recorded Sex Assigned at Male 04/05/2024 10:19 AM BIOINFORMATICS SCIENTIST Legal Sex Male 9:10 AM BIOINFORMATICS SCIENTIST Gender Identity Not on file Sexual Orientation Not on file Last Filed Vital Signs Vital Sign Reading Time Taken Comments Blood Pressure 110/80 10/18/2024 2:39 PM CDT Pulse 83 10/18/2024 2:39 PM CDT Temperature 36.8 C (98.2 F) 10/25/2022 6:46 AM CDT Respiratory Rate 18 10/18/2024 2:39 PM CDT Oxygen Saturation 97% 10/18/2024 2:39 PM CDT Inhaled Oxygen Concentration - - Weight 121.6 kg (268 lb) 10/18/2024 2:39 PM CDT Height 188 cm (6' 2) 10/18/2024 2:39 PM CDT Body Mass Index 34.41 10/18/2024 2:39 PM CDT Plan of Treatment Upcoming Encounters Date Type Department Care Team (Late st Contact Info) Description 08/02/2025 11:00 AM CDT Office Visit [facility] [address] [place] [address] Damion Barry, PAKelinC [address] [place] [address] Health Maintenance Due Date Last Done Comments Colorectal Cancer Screening Colonoscopy (10 Years) 1960 Zoster Vaccines (1 of 2) 08/30/2009 COVID-19 Vaccine ( - season) 2024 Influenza Adult (#1) 2024 02/13/2020, 03/06/2019, 04/07/2017 DTaP, Tdap and Td Vaccines (2 - Td or Tdap) 04/07/2027 04/07/2017 RSV Immunization or 60+ Years (1 - 1-dose 75+ series) 08/30/2034 Pneumococcal Vaccine: 50+ Years Completed 03/06/2019, 09/25/2015, 03/14/2014, Additional history exists Hepatitis C Completed 07/16/2021, 03/23, 04/13/2021 Hepatitis A Vaccines Aged Out No long er eligible based on patient's age to complete this topic Meningococcal B Vaccine Aged Out No l [...] support at home upon discharge General No Arlene Morelty L, qa automation engineer Procedure Name Priority Date/Time Associated Diagnosis Comments ELECTROCARDIOGRAM (NON MIDMARK ACQUIRED) Routine 10/18/2024 2:47 PM CDT Atrial fibrillation with rapid ventricular response (CMS/HCC HHS/HCC) HEPATITIS C ANTIBODY Routine 04/18/2021 3:34 PM BIOINFORMATICS SCIENTIST from Last 3 Months or Most Recently Relevant to Health Maintenance Results * ELECTROCARDIOGRAM (10/18/2024 2:47 PM CDT) 10/18/2024 2:47 PM CDT Narrative [facility] - 10/19/2024 2:19 PM CDT [facility] [address] [place] [address] Test Date: 2024-10-18 Pat Name: [facility] Department: 105 Room: Gender: Male Space Planner: pinky MCKEONB: 1960 Requested By: MADONNA EISENBERG Order Number: [id number] Reading MD: Madonna Eisenberg Measurements Intervals [place] Rate: 84 P: 42 SC: 191 QRS: 34 QRSD: 94 T: -26 QT: 333 QTc: 396 Interpretive Statements SINUS RHYTHM INCOMPLETE RIGHT BUNDLE BRANCH BLOCK ST DEVIATION AND MODERATE T-WAVE ABNORMALITY, CONSIDER ANTERIOR ISCHEMIA Procedure Note Madonna Eisenberg MD - 10/19/2024 [facility] [address] [place] [address] Test Date: 2024-10-18 Pat Name: [facility] Department: 105 Room: Gender: Male Space Planner: pinky : 1960 Requested By: MADONNA EISENBERG Order Number: [id number] Reading JARED Eisenberg Measurements Intervals [place] Rate: 84 P: 42 SC: 191 QRS: 34 QRSD: 94 T: -26 QT: 333 QTc: 396 Interpretive Statements SINUS RHYTHM INCOMPLETE RIGHT BUNDLE BRANCH BLOCK ST DEVIATION AND MODERATE T-WAVE ABNORMALITY, CONSIDER ANTERIOR ISCHEMIA Madonna Eisenberg MD PROCEDURES-ORDERABLE NO CHARGE F inal Result [facility] * HEPATITIS C ANTIBODY (04/18/2021 3:34 PM BIOINFORMATICS SCIENTIST) HEPATITIS C AB NON-REACTI VE NON-REACT BEN 04/18/2021 6:34 PM BIOINFORMATICS SCIENTIST [facility] Comment: ANTIBODIES TO HCV NOT DETECTED. DOES NOT EXCLUDE THE POSSIBILITY OF EXPOSURE TO HCV. 04/18/2021 3:34 PM BIOINFORMATICS SCIENTIST Mary Lobo MD LABORATORY Final Result Performing Organization Address City/[facility]/ZIP Co de Phone Number [facility] [address] [place] [address], [id number] from Last 3 Months or Most Recently Relevant to Health Maintenance Insurance MEDICARE [facility] Advance Directives * Full Code (Latest Code [...] 1:04 PM 03/01/2019 7:39 PM Care Teams Grinder Set Up Operator Gear Tool Relationship Specialty Start Date End Date Cornelius Diane MD [address] [place] [address] PCP - General INTERNAL MEDICINE 02/27/19 Damion Barry, PAKelinC [address] [place] [address] PHYSICIAN MANAGER BANK 04/05/24
--- OUTSIDE RECORDS SUMMARY | 2025-01-12 08:54 | XMS_ITS | Clinical Summary ---
Author Organization [address] Address [address] [place] [address] Care Team Providers Care Shoe Salesperson Name Role Phone Cornelius Diane MD Primary Care Provider [phone] Allergies No known active allergies Medications Eliquis [...] Hypertrophy of both inferior nasal turbinates Immunizations Immunization Administration Dates Next Due Influenza, Quadrivalent, Spl it, Intramuscular 04/07/2017 Influenza, Quadrivalent, Spl it, Preservative Free, Intramuscular 02/13/2020,03/06/2019 Pneumococcal Conjugate PCV 13 09/25/2015 Pneumococcal Polysaccharide PPV23 03/06/2019,,03/02/2008 Tdap 04/07/2017 Surgical History Surgery Date Site/Laterality Comments ADENOIDECTOMY W/ MYRINGOTOMY AND TUBES TONSILLECTOMY ORAL SURGERY Medical History Medical History Date Comments Allergic rhinitis Asthma Sinusitis Atrial fibrillation (HCC) Family History Medical History Relation Name [...] on file Legal Sex Male 1:48 PM AUTOMOTIVE UPHOLSTERER Gender Identity Not on file Sexual Orientation [...] 2:03 PM CDT Height 188 cm (6' 2) 07/16/2021 2:03 PM CDT Body Mass Index 26.96 07/16/2021 2:03 PM CDT Plan of Treatment Not on file Insurance [employer] [facility] HMO [facility] PPO [facility] PPO Care Teams Shoe Salesperson Relationship Specialty Start Date End Date Cornelius Diane MD [address] [place] [address] PCP - General Internal Medicine 02/26/20
--- OUTSIDE RECORDS SUMMARY | 2025-01-12 08:54 | XMS_ITS | Encounter Summary ---
Author Organization [facility] Address [address] [place] [address] Care Team Providers Care Manager Subway Name Role Phone Cornelius Diane MD Primary Care Provider [phone] Damion Barry PA-C Unavailable [phone] Encounter Details Date Type Department Care Team (Late st Contact Info) Description 04/13/2024 VideoMining Message Enc [facility] [address] [place] [address] Damion Barry PA-C [address] [place] [address] Tropol -Skin Itching Social History [...] Sex Assigned at Male 04/05/2024 10:19 AM PRESCHOOL SUBSTITUTE TEACHER Legal Sex Male 9:10 AM PRESCHOOL SUBSTITUTE TEACHER Gender Identity Not on file Sexual Orientation Not on file documented as of this encounter Functional Status * RETIRED Are you deaf or do you have serious difficulty hearing Answer Date of Assessment Author Status No 04/06/2021 9:30 PM PRESCHOOL SUBSTITUTE TEACHER Activ e * RETIRED Are you blind or do you have serious difficulty seeing, even when wearing glasses? Answer Date of Assessment Author Status No 04/06/2021 9:30 PM PRESCHOOL SUBSTITUTE TEACHER Activ e * Do you have serious [...] Description 08/02/2025 11:00 AM CDT Office [facility] [address] [place] [phone] Damion Barry PA-C [address] [place] [address] documented as of this encounter Goals Goal Patient Goal Type Associated Problems Recent Progress Patient-Stated? Author Safety Patient/family will have appropriate support at home upon discharge General No Iris Morel, RN documented as of this encounter Visit Diagnoses Not on filedocumented in this encounter Care Teams Manager Subway Relationship Specialty Start Date End Date Cornelius Diane MD [address] [place] [address] PCP - General INTERNAL MEDICINE 02/27/19 Damion Barry PA-C [address] [place] [phone] PHYSICIAN SPECIAL EDUCATION BUS DRIVER 04/05/24 documented as of this encounter
--- OUTSIDE RECORDS SUMMARY | 2025-01-12 08:54 | XMS_ITS | Encounter Summary ---
Author Organization [facility] Address [address] [place] [address] Care Team Providers Care Border Machine Operator Name Role Phone Cornelius Diane MD Primary Care Provider [phone] Damion Barry PA-C Unavailable [phone] Encounter Details Date Type Department Care Team (Latest Contact Info) Description 05/04/2024 App[place]ia Message Enc [facility] [address] [place] [address] Damion Barry PA-C [address] [place] [address] Change Motoprolol prescription from 50mg to 25mg Social History Tobacco Use Types Packs/Day Years [...] Sex Assigned at Male 04/05/2024 10:19 AM RETORT FURNACE HELPER Legal Sex Male 9:10 AM RETORT FURNACE HELPER Gender Identity Not on file Sexual Orientation Not on file documented as of this encounter Functional Status * RETIRED Are you deaf or do you have serious difficulty hearing Answer Date of Assessment Author Status No 04/06/2021 9:30 PM RETORT FURNACE HELPER Activ e * RETIRED Are you blind or do you have serious difficulty seeing, even when wearing glasses? Answer Date of Assessment Author Status No 04/06/2021 9:30 PM RETORT FURNACE HELPER Activ e * Do you have serious [...] Description 08/02/2025 11:00 AM CDT [facility] [address] [place] [phone] Damion Barry PA-C [address] [place] [address] documented as of this encounter Goals Goal Patient Goal Type Associated Problems Recent Progress Patient-Stated? Author Safety Patient/family will have appropriate support at home upon discharge General No Iris Morel RN documented as of this encounter Visit Diagnoses Not on filedocumented in this encounter Care Teams Border Machine Operator Relationship Specialty Start Date End Date Cornelius Diane MD [address] [place] [phone] PCP - General INTERNAL MEDICINE 02/27/19 Damion Barry PA-C [address] [place] [address] PHYSICIAN SENIOR STORAGE ENGINEER 04/05/24 documented as of this encounter
--- OUTSIDE RECORDS SUMMARY | 2025-01-12 08:54 | XMS_ITS | Encounter Summary ---
Author Organization [facility] Address [address] [place] [address] Care Team Providers Care Press Shop Supervisor Name Role Phone Cornelius Diane MD Primary Care Provider [phone] Damion BarryC Unavailable Encounter Details Date Type Department Care Team (Late st Contact Info) Description 03/25/2021 Hospital Follow-up Call [facility] Care Unit [address] [place] [address] Sugey Solares RN Social History Tobacco Use [...] Sex Assigned at Male 04/05/2024 10:19 AM AD TRAFFICKER Legal Sex Male 9:10 AM AD TRAFFICKER Gender Identity Not on file Sexual Orientation Not on file COVID-19 Exposure Response Date Recorded In the last month, have you been in contact with someone who was confirmed or suspected to have Coronavirus / COVID-19? No / Unsure 03/27/2021 10:07 PM AD TRAFFICKER documented as of this encounter Functional Status * Question Answer Date of Assessment Author Status Do you have serious difficulty walking or climbing stairs? No 03/27/2021 10:08 PM AD TRAFFICKER Bart Sanabria V, RN Ac tive * [...] Assessment Author Status No 03/21/2021 7:52 PM AD TRAFFICKER Activ e * RETIRED Are you blind or do you have serious difficulty seeing, even when wearing glasses? Answer Date of Assessment Author Status No 03/21/2021 7:52 PM AD TRAFFICKER Activ e * Do you have serious [...] 7:52 PM Adriana Aviles RN Active * Calculated C-SSRS Risk Score (Lifetime/Recent) Answer Date of Assessment Author Status No Risk Indicated 03/27/2021 3:27 PM Imelda Ribera RN Active * [place] Suicide Severity Rating Scale (Screener/Recent Self-Report) Question Answer Date of Assessment Author Status 1. Wish to be (Past 1 Month) No 03/27/2021 3:27 PM Alejandra Ribera RN Active 2. Non-Specific Active Suicidal Thoughts (Past 1 Month) No 03/27/2021 3:27 PM Alejandra Ribera RN Active 6. Suicidal Behavior (Lifetime) No 03/27/2021 3:27 PM Alejandra Ribera RN Active documented as of this encounter Mental Status * Question Answer Entry Date Author Status Because of a physical, mental, or emotional condition, do you have serious difficulty concentrating, remembering, or making decisions? No 03/27/2021 10:08 PM AD TRAFFICKER Bart Sanabria V RN Active * Because of a physical, mental, or emotional condition, do you have serious difficulty concentrating, remembering, or making decisions? Answer Entry Date Author Status No 03/21/2021 7:52 PM AD TRAFFICKER Adriana Luciano RN Active documented in this encounter Plan of Treatment Upcoming Encounters Date Type Department Care Team (Late st Contact Info) Description 08/02/2025 11:00 AM CDT Office Visit [facility] [address] [place] [address] Damion Barry, PAKelinC [address] [place] [address] documented as of this encounter Visit Diagnoses Not on filedocumented in this encounter Additional Health Concerns Infection Onset Date Last Indicated Resolved Time COVID-19 Rule Out 03/27/2021 03/27/2021 03/27/2021 5:30 PM AD TRAFFICKER COVID-19 Rule Out 04/06/2021 04/06/2021 04/10/2021 1:15 PM AD TRAFFICKER documented as of this encounter Care Teams Press Shop Supervisor Relationship Specialty Start Date End Date Cornelius Diane MD [address] [place] [phone] PCP - General INTERNAL MEDICINE 02/27/19 Damion Barry PAKelinC [address] [place] [address] PHYSICIAN FIREBREAK CUTTER 04/05/24 documented as of this encounter
--- OUTSIDE RECORDS SUMMARY | 2025-01-12 08:54 | XMS_ITS | Encounter Summary ---
Author Organization [facility] Address [address] [place] [address] Care Team Providers Care Manufacturing Executive Name Role Phone Cornelius Diane MD Primary Care Provider [phone] Damion BarryC Unavailable [phone] Encounter Details Date Type Department Care Team (Late st Contact Info) Description 04/05/2021 [facility] Documentation [facility] [address] [place] [phone] Gregorio Rodriguez MD [address] [place], [place] [phone] Social History Tobacco Use Types Packs/Day Years [...] Sex Assigned at Male 04/05/2024 10:19 AM LAUNDRY FOLDER Legal Sex Male 9:10 AM LAUNDRY FOLDER Gender Identity Not on file Sexual Orientation Not on file COVID-19 Exposure Response Date Recorded In the last month, have you been in contact with someone who was confirmed or suspected to have Coronavirus / COVID-19? No / Unsure 04/06/2021 9:43 PM LAUNDRY FOLDER documented as of this encounter Functional Status [...] Assessment Author Status No 03/27/2021 10:08 PM JEANETTE Acti ve * RETIRED Are you blind or do you have serious difficulty seeing, even when wearing glasses? Answer Date of Assessment Author Status No 03/27/2021 10:08 PM JEANETTE Acti ve * Do you have serious [...] 10:08 PM Bart Orr RN Active * Calculated C-SSRS Risk Score (Lifetime/Recent) Answer Date of Assessment Author Status No Risk Indicated 04/06/2021 9:30 PM Richar Crane RN Active * [place] Suicide Severity Rating Scale (Screener/Recent Self-Report) Question Answer Date of Assessment Author Status 1. Wish to be (Past 1 Month) No 04/06/2021 9:30 PM Paz Crane RN Ac tive 2. Non-Specific Active Suicidal Thoughts (Past 1 Month) No 04/06/2021 9:30 PM Paz Crane RN Ac tive 6. Suicidal Behavior (Lifetime) No 04/06/2021 9:30 PM Paz Crane RN Naun feliciano documented as of this encounter Mental Status * Question Answer Entry Date Author Status Because of a physical, mental, or emotional condition, do you have serious difficulty concentrating, remembering, or making decisions? No 04/06/2021 9:30 PM LAUNDRY FOLDER Paz Jones, RN Active * Because of a physical, mental, or emotional condition, do you have serious difficulty concentrating, remembering, or making decisions? Answer Entry Date Author Status No 03/27/2021 10:08 PM Bart Orr V RN Active documented in this encounter Progress Notes * Gregorio Rodriguez MD - 04/05/2021 10:29 PM CST Received a phone call from [employer]. Patient in [facility] with heart isin the 150s. Hemodynamically stable 113/77 mmHg. He has failed flecainide. Recommended stopping flecainide. Will continue control strategy for now With intravenous digoxin loading. If needed, will consider amiodarone loading tomorrow. DRY FOLDER documented in this encounter Plan of Treatment Upcoming Encounters Date Type Department Care Team (Late st Contact Info) Description 08/02/2025 11:00 AM CDT Office Visit [facility] [address] [place] [phone] Damion Barry, PAKelinC [address] [place] [address] documented as of this encounter Goals Goal Patient Goal Type Associated Problems Recent Progress Patient-Stated? Author Safety Patient/family will have appropriate support at home upon discharge General No Iris Morel RN documented as of this encounter Visit Diagnoses Not on filedocumented in this encounter Additional Health Concerns Infection Onset Date Last Indicated Resolved Time COVID-19 Rule Out 04/06/2021 04/06/2021 04/10/2021 1:15 PM LAUNDRY FOLDER documented as of this encounter Care Teams Manufacturing Executive Relationship Specialty Start Date End Date Cornelius Diane MD [address] [place] [address] PCP - General INTERNAL MEDICINE 02/27/19 Damion Barry, [facility] [address] [place] [address] PHYSICIAN LABORATORY SPECIALIST 04/05/24 documented as of this encounter
[2025-01-12 09:28] LABS: Hematocrit 49.1 % (37.0-46.0); Hemoglobin 15.9 g/dL (12.4-15.3); Immature Granulocyte Percent A 0.1 % (0.0-0.0); Lymphocytes Absolute Auto 1.76 K/mm3 (1.10-4.50); Mean Corpuscular HGB Conc 32.4 g/dL (32-36); Mean Corpuscular Hemoglobin 30.4 pg (27.0-31.0); Mean Corpuscular Volume 93.9 fL (78.0-102.0); Nucleated Red Blood Cells Absolute Auto 0.00 K/mm3 (0.00-0.00); Nucleated Red Blood Cells Perc 0.0 % (0-0.0); Platelet Count Result 292 K/mm3 (150-420); Red Blood Count 5.23 M/mm3 (4.70-6.10); White Blood Count 7.8 K/mm3 (4.8-10.8)
[2025-01-12 09:30] LABS: Add Urine Microscopic? NO; Appearance Urine Clear (Clear); Glucose Urine UA Negative (Negative); Leukocyte Esterase Ur Negative LEU/UL (Negative); Nitrate Urine Negative (Negative); Specific Grav Ur >= 1.030 (1.010-1.020)
[2025-01-12 09:48] LABS: Hemoglobin A1C 5.5 % (<5.7)
[2025-01-12 10:09] LABS: Alanine Aminotransferase 16 U/L (6-50); Albumin Level 4.3 g/dL (3.5-5.1); Alkaline Phosphatase 86 U/L (38-126); Anion Gap 10 mmol/L (4-12); Aspartate Amino Transferase 23 U/L (17-59); Bilirubin,Total 0.9 mg/dL (0.2-1.3); Blood Urea Nitrogen 17 mg/dL (9-20); Calcium 9.0 mg/dL (8.4-10.2); Carbon Dioxide 25 mmol/L (22-30); Chloride 106 mmol/L (98-107); Cholesterol 181 mg/dL (0-200); Estimated Glomerular Filt Rate 57; Glucose 98 mg/dL (65-110); HDL Direct 50 mg/dL; Magnesium 2.1 mg/dL (1.6-2.3); Osmolality Calculated 293 mOsm/kg (285-295); Potassium 4.7 mmol/L (3.4-5.0); Sodium 141 mmol/L (137-145); Total Protein 8.2 g/dL (6.3-8.2); Triglycerides 63 mg/dL (<150)
[2025-01-12 10:16] LABS: NT Pro B Type Natriuretic Pept 99 pg/mL (19.9-100)
[2025-01-12 10:24] LABS: Free T4 Free Thyroxine 1.14 ng/dL (0.78-2.19)
[2025-01-12 10:25] LABS: Free T3 3.57 pg/mL (2.18-3.98)
[2025-01-12 10:38] LABS: Thyroid Stimulating Hormone 1.890 uIU/mL (0.465-4.680)
[2025-01-12 14:06] LABS: CRP 0.6 mg/dL (<1.0)
== END 2025-01-12 08:43 | disposition home or self-care (01) ==
PROVIDERS: PCP Internal Medicine; Visit Provider Internal Medicine
DX: E78.2 Mixed hyperlipidemia (principal); R73.01 Impaired fasting glucose; I48.0 Paroxysmal atrial fibrillation; R06.00 Dyspnea, unspecified
CPT/HCPCS: 36415; 80053; 80061; 81003; 83036; 83735; 83880; 84439; 84443; 84481; 85025; 86140